=== PATIENT | female | born 1965 | race Caucasian/White ===

== ENCOUNTER 2023-02-20 10:30 | Outpatient (AMB) | payer BC, SELFPAY ==
--- OUTSIDE RECORDS SUMMARY | 2023-02-20 10:32 | XMS_ITS | Continuity of Care Document ---
Author Name Unknown Organization [facility] Hari lt Address [address] [place] [address]- Care Team Providers Care Plate Embosser Name Role Phone Kenrick ZAMARRIPA, Mariely Garcia Primary Care Physician Encounter [facility] [place] Date(s): 08/21/21 - 01/19/22 [facility] Adult [address] [place] [address]- Attending Physician: Kenrick ZAMARRIPA, Mariely Garcia Referring Physician: Lester Day MD Allergies, Adverse Reactions, Alerts No Known Allergies Immunizations Given and Recorded Vaccine Date Status Refusal Reason SARS-CoV-2 (COVID-19) mRNA BNT-162b2 vac 04/04/21 Recorded SARS-CoV-2 (COVID-19) mRNA BNT-162b2 vac 11/23/20 Recorded tetanus/diphtheria/pertussis, acel(Tdap) 1 11/06/20 Given 1Result Comment: [id number] Medications levothyroxine 0.137 mg oral tablet 1 tablet = 137 mcg, By Mouth, Daily, take 1 tab daily mon-mon take 1/2 tab on sundays, # 90 tablet,0 Refills, Maintenance, 12/29/21 10:17:00 EDT, [facility]/pharmacy #[id number], Partial fill upon patient request if the prescription is for a schedule II opioid d... Start Date: 12/29/21 Stop Date: 03/29/22 Status: Ordered Pen [place], 32 G x 4 mm BD Ultra Fine III See Instructions, # 100 each, Refills 1, Tot. Refills 1, Maintenance, use with saxenda, 12/29/21 10:42:00 EDT, Supply, 162, cm, 12/29/21 9:55:00 EDT, Height, 96.1, kg, 03/25/20 11:21:00 EST, Dry Weight Start Date: 12/29/21 Status: Ordered Saxenda 18 mg/3 mL subcutaneous solution See Instructions, week 1: 0.6mg SC daily x7 days week 2: 1.2 mg SC daily x 7 days week 3: 1.8 mg SCdaily x 7 days week 4: 2.4 mg SC daily x 7 days week 5 3mg SC daily, # 15 mL, 1 Refills, Maintenance, 12/29/21 10:39:00 EDT, [id number],... Start Date: 12/29/21 Status: Ordered Problem List Condition Effective Dates Status Health Status Inform ant Graves' disease(Confirmed) Active Status post radioactive iodi ne thyroid ablation(Confirmed) Active Hypothyroidism(Confirmed) Active Obese class II(Confirmed) Active Social History Social History Type Response Smoking Status Never (less than 100 in lifetime) entered on: 08/08/18 Sex Care Team Personnel Name: Kenrick ZAMARRIPA, Mariely Garcia Address: [address] [place] [address] Adult [place], [place] [address]
--- OUTSIDE RECORDS SUMMARY | 2023-02-20 10:32 | XMS_ITS | Continuity of Care Document ---
Author Name Unknown Organization [facility] Hari lt Address [address] [place] [address]- Care Team Providers Care Hydrographic Engineer Name Role Phone Kenrick ZAMARRIPA, Mariely Garcia Primary Care Physician Encounter [facility] [place] Date(s): 06/24/21 - 07/24/21 [facility] Adult [address] [place] [address]- Allergies, Adverse Reactions, Alerts No Known Allergies Immunizations Given and Recorded Vaccine Date Status Refusal Reason SARS-CoV-2 (COVID-19) mRNA BNT-162b2 vac 11/23/20 Recorded tetanus/diphtheria/pertussis, acel(Tdap) 1 11/06/20 Given 1Result Comment: [id number] Medications Levoxyl 0.125 mg oral tablet 1 tablet = 125 mcg, By Mouth, Daily, # 90 tablet, 3 Refills, Maintenance, 02/09/21 15:47:00 EDT, Tablet, [id number], Partial fill upon patient request if the prescription is for a schedule IIopioid drug., 162, cm, 02/09/21 15:17:00 EDT, [facility]... Start Date: 02/09/21 Status: Ordered Problem List Condition Effective Dates Status Health Status Inform ant Graves' disease(Confirmed) Active Status post radioactive iodi ne thyroid ablation(Confirmed) Active Hypothyroidism(Confirmed) Active Obesity(Confirmed) Active Social History Social History Type Response Smoking Status Never (less than 100 in lifetime) entered on: 08/08/18 Sex
--- OUTSIDE RECORDS SUMMARY | 2023-02-20 10:32 | XMS_ITS | Continuity of Care Document ---
Author Name Unknown Organization [facility] Hari lt Address [address] [place] [address]- Care Team Providers Care Animal Maintenance Supervisor Name Role Phone Not on Staff, PCP Primary Care Physician Unavail able Encounter [facility] Date(s): 01/04/23 - 02/03/23 [facility] Adult [address] [place] [address]- Attending Physician: Admtr, Ar8 Admitting Physician: Admtr, Ar8 Referring Physician: Admtr, Ar8 Allergies, Adverse Reactions, Alerts No Known Allergies Immunizations Given and Recorded Vaccine Date Status Refusal Reason SARS-CoV-2 (COVID-19) mRNA BNT-162b2 vac 04/04/21 Recorded SARS-CoV-2 (COVID-19) mRNA BNT-162b2 vac 11/23/20 Recorded tetanus/diphtheria/pertussis, acel(Tdap) 1 11/06/20 Given 1Result Comment: [id number] Medications levothyroxine 125 mcg (0.125 mg) oral tablet 1 tablet, By Mouth, Daily, # 90 tablet, 0 Refills, Maintenance, 10/05/22 6:54:00 EDT, [id number], labs needed for further refills, 162, cm, 04/01/22 13:47:00 EST, Height Start Date: 10/05/22 Status: Ordered Pen [place], 32 G x 4 mm BD Ultra [...] Date: 12/29/21 Status: Ordered Problem List Condition Confirmation Course Effective Dates Status H ealth Status Informant Graves' disease Confirmed Active Status post radioactive iodine thyroid ablation Confirmed Active Hypothyroidism Confirmed Active Obese class II Confirmed Active Social History Social History Type Response Smoking Status Never (less than 100 in lifetime) entered on: 08/08/18 Sex Patient Care team information Care Team Personnel Name: Not on Staff, PCP Position: [facility] Physician (General Medicine) Member Role: PCP Care Team Related Persons Name: ABELARDO GRIFFITH Address: home [address] [place] [address] Name: LINDA GRIFFITH Address: home [address] [place] [address] Name: JIMMY THORPE Name: TANIA THORPE Address: home [address] [place] [address]
--- OUTSIDE RECORDS SUMMARY | 2023-02-20 10:32 | XMS_ITS | Continuity of Care Document ---
Author Name Unknown Organization [facility] Hari lt Address [address] [place] [address]- Care Team Providers Care Single Pointed Operator Name Role Phone Edwin Toledo MD Primary Care Physician [phone] Encounter [facility] [place] Date(s): 02/09/21 - 03/11/21 [facility] Adult [address] [place] [address]- Attending Physician: Admtr, Ar8 Admitting Physician: Admtr, Ar8 Referring Physician: Admtr, Ar8 Allergies, Adverse Reactions, Alerts Substance Reaction Severity Status NKA Active Immunizations Given and Recorded Vaccine Date Status Refusal Reason SARS-CoV-2 (COVID-19) mRNA BNT-162b2 vac 11/23/20 Recorded tetanus/diphtheria/pertussis, acel(Tdap) 1 11/06/20 Given 1Result Comment: [id number] Medications Levoxyl 0.125 mg oral tablet 1 tablet = 125 mcg, By Mouth, Daily, # 90 tablet, 3 Refills, Maintenance, 02/09/21 15:47:00 EDT, Tablet, [facility]/pharmacy #[id number], Partial fill upon patient request if the prescription is for a schedule IIopioid drug., 162, cm, 02/09/21 15:17:00 EDT, [facility]... Start Date: 02/09/21 Status: Ordered Problem List Condition Effective Dates Status Health Status Inform ant Graves' disease(Confirmed) Active Status post radioactive iodi ne thyroid ablation(Confirmed) Active Hypothyroidism(Confirmed) Active Obesity(Confirmed) Active Social History Social History Type Response Smoking Status Never (less than 100 in lifetime) entered on: 08/08/18 Sex
--- OUTSIDE RECORDS SUMMARY | 2023-02-20 10:32 | XMS_ITS | Continuity of Care Document ---
Author Name Unknown Organization [facility] Hari Address [address] [place] [address]- Care Team Providers Care Racing Manager Name Role Phone Edwin Toledo MD Primary Care Physician [phone] Encounter [facility] [place] Date(s): 11/06/20 - 12/06/20 [facility] Adult [address] [place] [address]- Attending Physician: Admtr, Yaneth Admitting Physician: Admtr, Ar8 Referring Physician: Admtr, Ar8 Allergies, Adverse Reactions, Alerts Substance Reaction Severity Status NKA Active Immunizations Given and Recorded Vaccine Date Status Refusal Reason tetanus/diphtheria/pertussis, acel(Tdap) 1 11/06/20 Given 1Result Comment: [id number] Medications Levoxyl 0.137 mg oral tablet 1 tablet = 137 mcg, By Mouth, Daily, # 90 tablet, 3 Refills, Maintenance, 11/06/20 11:03:00 EDT, Tablet, [facility]/pharmacy #[id number], Partial fill upon patient request if the prescription is for a schedule IIopioid drug., 162, cm, 11/06/20 10:24:00 EDT, [facility]... Start Date: 11/06/20 Status: Ordered Problem List Condition Effective Dates Status Health Status Inform ant Graves' disease(Confirmed) Active Status post radioactive iodi ne thyroid ablation(Confirmed) Active Hypothyroidism(Confirmed) Active Obesity(Confirmed) Active Social History Social History Type Response Smoking Status Never (less than 100 in lifetime) entered on: 08/08/18 Sex
--- OUTSIDE RECORDS SUMMARY | 2023-02-20 10:32 | XMS_ITS | Continuity of Care Document ---
Author Name Unknown Organization [facility] [place] Hari lt Address [address] [place] [address]- Care Team Providers Care Senior Director Of [employer] Name Role Phone Kenrick ZAMARRIPA, Mariely Garcia Primary Care Physician [phone] Encounter [facility] [place] Date(s): 12/29/21 - 01/05/22 [facility] [place] Adult [address] [place] [address]- Encounter Diagnosis Annual physical exam(Discharge Diagnosis) - 12/29/21 Hypothyroidism(Discharge Diagnosis) - 12/29/21 Obese class II(Discharge Diagnosis) - 12/29/21 Attending Physician: Kenrick ZAMARRIPA, Mariely Garcia Referring Physician: Lester Day MD Allergies, Adverse Reactions, Alerts No Known Allergies Immunizations Given and Recorded Vaccine Date Status Refusal Reason SARS-CoV-2 (COVID-19) mRNA BNT-162b2 vac 04/04/21 Recorded SARS-CoV-2 (COVID-19) mRNA BNT-162b2 vac 11/23/20 Recorded tetanus/diphtheria/pertussis, acel(Tdap) 1 11/06/20 Given 1Result Comment: [id number] Medications levothyroxine 0.137 mg oral tablet 1 tablet = 137 mcg, By Mouth, Daily, take 1 tab daily mon-mon take 1/2 tab on sundays, # 90 tablet,0 Refills, Maintenance, 12/29/21 10:17:00 EDT, [facility]/pharmacy #[id number], Partial fill upon patient request if the prescription is for a schedule II opioid d... Start Date: 12/29/21 Stop Date: 03/29/22 Status: Ordered Pen [place], 32 G x 4 mm BD Ultra [...] Active Hypothyroidism(Confirmed) Active Obese class II(Confirmed) Active Diagnosis Diagnosis Type Effective Dates Health Status Clinical Service Informant Annual physical exam Discharge Diagnosis 12/29/21 Hypothyroidism Discharge Diagnosis 12/29/21 Obese class II Discharge Diagnosis 12/29/21 Vital Signs Most recent to oldest [Reference Range]: 1 Height 162.0 cm (12/29/21 9:55 AM) Weight 98.6 kg (12/29/21 9:55 AM) Oxygen Saturation [94-100 %] 97 % (12/29/21 9:55 AM) Pulse Rate [55-90 bpm] 56 bpm (12/29/21 9:55 AM) Body Mass Index [18.5-24.99] 37.57 *>HHI* (12/29/21 9:55 AM) Blood Pressure [90-138/55-84 mm Hg] 102/ 68mm Hg (12/29/21 9:55 AM) Temperature [96.8-100.4 DegF] 97.6 DegF (12/29/21 9:55 AM) Blood pressure sites Arm, right (12/29/21 9:55 AM) Temperature Route Temporal (12/29/21 9:55 AM) Weight Obtained Via Standing scale (12/29/21 9:55 AM) Social History Social History Type Response Smoking Status Never (less than 100 in lifetime) entered on: 08/08/18 Sex
--- OUTSIDE RECORDS SUMMARY | 2023-02-20 10:32 | XMS_ITS | Continuity of Care Document ---
Author Name Unknown Organization [facility] Hari lt Address [address] [place] [address]- Care Team Providers Care Hammer Heater Name Role Phone Edwin oTledo MD Primary Care Physician Encounter [facility] [place] Date(s): 02/09/21 - 02/16/21 [facility] Adult [address] [place] [address]- Encounter Diagnosis Hypothyroidism(Discharge Diagnosis) - 02/09/21 Obesity(Discharge Diagnosis) - 02/09/21 Attending Physician: Edwin Toledo MD Allergies, Adverse Reactions, Alerts Substance Reaction Severity Status NKA Active Immunizations Given and Recorded Vaccine Date Status Refusal Reason SARS-CoV-2 (COVID-19) mRNA BNT-162b2 vac 11/23/20 Recorded tetanus/diphtheria/pertussis, acel(Tdap) 1 11/06/20 Given 1Result Comment: [id number] Medications Levoxyl 0.125 mg oral tablet 1 tablet = 125 mcg, By Mouth, Daily, # 90 tablet, 3 Refills, Maintenance, 02/09/21 15:47:00 EDT, Tablet, [facility]/pharmacy #[id number], Partial fill upon patient request if the prescription is for a schedule IIopioid drug., 162, cm, 02/09/21 15:17:00 EDT, Cooper... Start Date: 02/09/21 Status: Ordered Problem List Condition Effective Dates Status Health Status Inform ant Graves' disease(Confirmed) Active Status post radioactive iodi ne thyroid ablation(Confirmed) Active Hypothyroidism(Confirmed) Active Obesity(Confirmed) Active Diagnosis Diagnosis Type Effective Dates Health Status Cl inical Service Informant Hypothyroidism Discharge Diagnosis 02/09/21 Obesity Discharge Diagnosis 02/09/21 Vital Signs Most recent to oldest [Reference Range]: 1 Height 162.0 cm (02/09/21 3:17 PM) Weight 95.5 kg (02/09/21 3:17 PM) Body Mass Index [18.5-24.99] 36.39 *>HHI* (02/09/21 3:17 PM) Weight Obtained Via Standing scale (02/09/21 3:17 PM) Social History Social History Type Response Smoking Status Never (less than 100 in lifetime) entered on: 08/08/18 Sex
--- OUTSIDE RECORDS SUMMARY | 2023-02-20 10:32 | XMS_ITS | Continuity of Care Document ---
Author Name Unknown Organization [facility] Hari Address [address] [place] [address]- Care Team Providers Care Ophthalmic Technician Name Role Phone Kenrick ZAMARRIPA, Mariely Garcia Primary Care Physician [place] [facility] [place] 05/04/22 [facility] Adult [address] [place] [address]- Allergies, Adverse Reactions, Alerts No Known Allergies Immunizations Given and Recorded Vaccine Date Status Refusal Reason SARS-CoV-2 (COVID-19) mRNA BNT-162b2 vac 04/04/21 Recorded SARS-CoV-2 (COVID-19) mRNA BNT-162b2 vac 11/23/20 Recorded tetanus/diphtheria/pertussis, acel(Tdap) 1 11/06/20 Given 1Result Comment: [id number] Medications levothyroxine 125 mcg (0.125 mg) oral tablet 1 tablet, By Mouth, Daily, # 90 tablet, 0 Refills, Maintenance, 04/01/22 11:52:00 EST, [id number], labs needed for further refills, 162, cm, 12/29/21 9:55:00 EDT, Height Start Date: 04/01/22 Status: Ordered Pen [place], 32 G x 4 mm BD Ultra [...] Care team information Care Team Personnel Name: Kenrick ZAMARRIPA, Mariely Garcia Position: [facility] Associate Professional Member Role: PCP Address: Address: [address] [place] [address]- Care Team Related Persons Name: ABELARDO GRIFFITH Address: home [address] [place] [address] Name: LINDA GRIFFITH Address: home [address] [place] [address] Name: JIMMY THORPE Name: TANIA THORPE Address: home [address] [place] [address]
--- OUTSIDE RECORDS SUMMARY | 2023-02-20 10:32 | XMS_ITS | Continuity of Care Document ---
Author Name Unknown Organization [facility] Hari lt Address [address] [place] [address]- Care Team Providers Care Clay Maker Name Role Phone Kenrick ZAMARRIPA, Mariely Garcia Primary Care Physician [place] [facility] [place]22 - 04/08/22 [facility] Adult [address] [place] [address]- Encounter Diagnosis Hypothyroidism(Discharge Diagnosis) - 04/01/22 Foot pain, right(Discharge Diagnosis) - 04/01/22 Attending Physician: Mariely Choudhary NP Allergies, Adverse Reactions, Alerts No Known Allergies Immunizations Given and Recorded Vaccine Date Status Refusal Reason SARS-CoV-2 (COVID-19) mRNA BNT-162b2 vac 04/04/21 Recorded SARS-CoV-2 (COVID-19) mRNA BNT-162b2 vac 11/23/20 Recorded tetanus/diphtheria/pertussis, acel(Tdap) 1 11/06/20 Given 1Result Comment: [id number] Medications levothyroxine 125 mcg (0.125 mg) oral tablet 1 tablet, By Mouth, Daily, # 90 tablet, 0 Refills, Maintenance, 04/01/22 11:52:00 EST, [id number], labs needed for further refills, 162, cm, 12/29/21 9:55:00 EDT, Height Start Date: 04/01/22 Status: Ordered Pen [place], 32 G x 4 mm BD Ultra [...] mL, 1 Refills, Maintenance, 12/29/21 10:39:00 EDT, [facility]/pharmacy #[id number],... Start Date: 12/29/21 Status: Ordered Problem List Condition Confirmation Course Effective Dates Status H ealth Status Informant Graves' disease Confirmed Active Status post radioactive iodine thyroid ablation Confirmed Active Hypothyroidism Confirmed Active Obese class II Confirmed Active Diagnosis Diagnosis Type Effective Dates Health Status Clinical Service Informant Hypothyroidism Discharge Diagnosis 04/01/22 Foot pain, right Discharge Diagnosis 04/01/22 Vital Signs Most recent to oldest [Reference Range]: 1 Height 162.0 cm (04/01/22 1:47 PM) Oxygen Saturation [94-100 %] 100 % (04/01/22 1:47 PM) Pulse Rate [55-90 bpm] 61 bpm (04/01/22 1:47 PM) Blood Pressure [90-138/55-84 mm Hg] 109/ 77mm Hg (04/01/22 1:47 PM) Blood pressure sites Arm, left (04/01/22 1:47 PM) Social History Social History Type Response Smoking Status Never (less than 100 in lifetime) entered on: 08/08/18 Sex Patient Care team information Care Team Personnel Name: Kenrick ZAMARRIPA, Mariely Garcia Position: [facility] Associate Professional Member Role: PCP Address: Address: [address] [place] [address]- Care Team Related Persons Name: ABELARDO GRIFFITH Address: home [address] [place] [address] Name: LINDA GRIFFITH Address: home [address] [place] [address] Name: JIMMY THORPE Name: TANIA THORPE Address: home [address] [place] [address]
--- OUTSIDE RECORDS SUMMARY | 2023-02-20 10:32 | XMS_ITS | Continuity of Care Document ---
Author Name Unknown Organization [facility] Hari lt Address [address] [place] [address]- Care Team Providers Care Benefits Assistant Name Role Phone Kenrick ZAMARRIPA, Mariely Garcia Primary Care Physician [phone] [place] [facility] [place] 03[place]22 - 04/30/22 [facility] Adult [address] [place] [address]- Allergies, Adverse Reactions, Alerts No Known Allergies Immunizations Given and Recorded Vaccine Date Status Refusal Reason SARS-CoV-2 (COVID-19) mRNA BNT-162b2 vac 04/04/21 Recorded SARS-CoV-2 (COVID-19) mRNA BNT-162b2 vac 11/23/20 Recorded tetanus/diphtheria/pertussis, acel(Tdap) 1 11/06/20 Given 1Result Comment: [id number] Medications levothyroxine 125 mcg (0.125 mg) oral tablet 1 tablet, By Mouth, Daily, # 90 tablet, 0 Refills, Maintenance, 04/01/22 11:52:00 EST, [id number], labs needed for further refills, 162, cm, 12/29/21 9:55:00 EDT, Height Start Date: 04/01/22 Status: Ordered Pen [place], 32 G x 4 mm BD Ultra [...] Personnel Name: Kenrick ZAMARRIPA, Mariely Garcia Position: [facility] Associate Professional Member Role: PCP Address: Address: [address] [place] [address]- Care Team Related Persons Name: ABELARDO GRIFFITH Address: [address] [place] [address] Name: LINDA GRIFFITH Address: home [address] [place] [address] Name: JIMMY THORPE Name: TANIA THORPE Address: home [address] [place] [address]
--- OUTSIDE RECORDS SUMMARY | 2023-02-20 10:32 | XMS_ITS | Continuity of Care Document ---
Author Name Unknown Organization [facility] Hari lt Address [address] [place] [address]- Care Team Providers Care Chicken Stuffer Name Role Phone Kenrick ZAMARRIPA, Mariely Garcia Primary Care Physician [phone] [place] [facility] [place] 08/23/21 - 09/22/21 [facility] Adult [address] [place] [address]- Allergies, Adverse Reactions, Alerts No Known Allergies Immunizations Given and Recorded Vaccine Date Status Refusal Reason SARS-CoV-2 (COVID-19) mRNA BNT-162b2 vac 11/23/20 Recorded tetanus/diphtheria/pertussis, acel(Tdap) 1 11/06/20 Given 1Result Comment: [id number] Medications Levoxyl 0.125 mg oral tablet 1 tablet = 125 mcg, By Mouth, Daily, # 90 tablet, 3 Refills, Maintenance, 02/09/21 15:47:00 EDT, Tablet, [facility]/pharmacy #[id number], Partial fill upon patient request if the [...]
--- OUTSIDE RECORDS SUMMARY | 2023-02-20 10:32 | XMS_ITS | Continuity of Care Document ---
Author Name Unknown Organization [facility] Hari lt Address [address] [place] [address]- Care Team Providers Care Setter Off Name Role Phone Kenrick ZAMARRIPA, Mariely Garcia Primary Care Physician [phone] Encounter [facility] [place] Date(s): 04/01/22 - 05/01/22 [facility] Adult [address] [place] [address]- Attending Physician: Admtr, Ar8 Admitting Physician: Admtr, Ar8 Referring Physician: Admtr, Ar8 Allergies, Adverse Reactions, Alerts No Known Allergies Immunizations Given and Recorded Vaccine Date Status Refusal Reason SARS-CoV-2 (COVID-19) mRNA BNT-162b2 vac 04/04/21 Recorded SARS-CoV-2 (COVID-19) mRNA BNT-162b2 vac 11/23/20 Recorded tetanus/diphtheria/pertussis, acel(Tdap) 1 11/06/20 Given 1Result Comment: [id number] Medications levothyroxine 125 mcg (0.125 mg) oral tablet 1 tablet, By Mouth, Daily, # 90 tablet, 0 Refills, Maintenance, 04/01/22 11:52:00 EST, [id number], labs needed for further refills, 162, cm, 12/29/21 9:55:00 EDT, Height Start Date: 04/01/22 Status: Ordered Pen [place], 32 G x 4 mm BD Ultra [...] mL, 1 Refills, Maintenance, 12/29/21 10:39:00 EDT, [facility]/pharmacy #[id number],... Start Date: 12/29/21 Status: Ordered Problem [...] Personnel Name: Kenrick ZAMARRIPA, Mariely Garcia Position: [facility] Associate Professional Member Role: PCP Address: Address: [address] [place] [address]- Care Team Related Persons Name: ABELARDO GRIFFITH Address: [address] [place] [address] Name: LINDA GRIFFITH Address: [address] [place] [address] Name: JIMMY THORPE Name: TANIA THORPE Address: home [address] [place] [address]
--- OUTSIDE RECORDS SUMMARY | 2023-02-20 10:32 | XMS_ITS | Continuity of Care Document ---
Author Name Unknown Organization [facility] Hari lt Address [address] [place] [address]- Care Team Providers Care Orthotist Prosthetist Name Role Phone Edwin Toledo MD Primary Care Physician [phone] Encounter [facility] Date(s): 11/06/20 - 11/13/20 [facility] Adult [address] [place] [address]- Encounter Diagnosis General medical exam(Discharge Diagnosis) - 11/06/20 Fatigue(Discharge Diagnosis) - 11/06/20 Caregiver stress(Discharge Diagnosis) - 11/06/20 Poor sleep pattern(Discharge Diagnosis) - 11/06/20 Obesity(Discharge Diagnosis) - 11/06/20 Attending Physician: Edwin Toledo MD Allergies, Adverse Reactions, Alerts Substance Reaction Severity Status NKA Active Immunizations Given and Recorded Vaccine Date Status Refusal Reason tetanus/diphtheria/pertussis, acel(Tdap) 1 11/06/20 Given 1Result Comment: [id number] Medications Levoxyl 0.137 mg oral tablet 1 tablet = 137 mcg, By Mouth, Daily, # 90 tablet, 3 Refills, Maintenance, 11/06/20 11:03:00 EDT, [place], [id number], Partial fill upon patient request if the prescription is for a schedule IIopioid drug., 162, cm, 11/06/20 10:24:00 EDT, [place]... Start Date: 11/06/20 Status: Ordered Problem List Condition Effective Dates Status Health Status Inform ant Graves' disease(Confirmed) Active Status post radioactive iodi ne thyroid ablation(Confirmed) Active Hypothyroidism(Confirmed) Active Obesity(Confirmed) Active Diagnosis Diagnosis Type Effective Dates Health Status Cl inical Service Informant Obesity Discharge Diagnosis 11/06/20 Caregiver stress Discharge Diagnosis 11/06/20 Poor sleep pattern Discharge Diagnosis 11/06/20 Fatigue Discharge Diagnosis 11/06/20 General medical exam Discharge Diagnosis 11/06/20 Procedures Procedure Date Related Diagnosis Body Site Status Tubal ligation Completed Vital Signs Most recent to oldest [Reference Range]: 1 Height 162.0 cm (11/06/20 10:24 AM) Weight 92.9 kg (11/06/20 10:24 AM) Oxygen Saturation [94-100 %] 97 % (11/06/20 10:24 AM) Pulse Rate [55-90 bpm] 54 bpm *L* (11/06/20 10:24 AM) Body Mass Index [18.5-24.99] 35.4 *>HHI* (11/06/20 10:24 AM) Blood Pressure [90-138/55-84 mm Hg] 96/6 4mm Hg (11/06/20 10:24 AM) Temperature [96.8-100.4 DegF] 97.5 DegF (11/06/20 10:24 AM) Mode of Delivery (Oxygen) Room air (11/06/20 10:24 AM) Blood pressure sites Arm, left (11/06/20 10:24 AM) Temperature Route Oral (11/06/20 10:24 AM) Weight Obtained Via Standing scale (11/06/20 10:24 AM) Social History Social History Type Response Smoking Status Never (less than 100 in lifetime) entered on: 08/08/18 Sex
--- OUTSIDE RECORDS SUMMARY | 2023-02-20 10:32 | XMS_ITS | Continuity of Care Document ---
Author Name Unknown Organization [facility] Hari lt Address [address] [place] [address]- Care Team Providers Care Recreational Resort Manager Name Role Phone Not on Staff, PCP Primary Care Physician Unavail able Encounter [facility] Date(s): 10/03/22 - 11/02/22 [facility] Adult [address] [place] [address]- Allergies, Adverse Reactions, Alerts No Known Allergies Immunizations Given and Recorded Vaccine Date Status Refusal Reason SARS-CoV-2 (COVID-19) mRNA BNT-162b2 vac 04/04/21 Recorded SARS-CoV-2 (COVID-19) mRNA BNT-162b2 vac 11/23/20 Recorded tetanus/diphtheria/pertussis, acel(Tdap) 1 11/06/20 Given 1Result Comment: [id number] Medications levothyroxine 125 mcg (0.125 mg) oral tablet 1 tablet, By Mouth, Daily, # 90 tablet, 0 Refills, Maintenance, 10/05/22 6:54:00 EDT, [id number], labs needed for further refills, 162, cm, 04/01/22 13:47:00 EST, Height Start Date: 10/05/22 Status: Ordered Pen [place], 32 G x 4 mm BD Ultra [...] Personnel Name: Not on Staff, PCP Position: S Physician (General Medicine) Member Role: PCP Care Team Related Persons Name: ABELARDO GRIFFITH Address: home [address] [place] [address] Name: LINDA GRIFFITH Address: home [address] [place] [address] Name: JIMMY THORPE Name: TANIA THORPE Address: home [address] [place] [address]
--- OUTSIDE RECORDS SUMMARY | 2023-02-20 10:32 | XMS_ITS | Continuity of Care Document ---
Author Name Unknown Organization [facility] Address [address] [facility] [place] [address]- Care Team Providers Care Salesperson New Cars Name Role Phone Tre MELGOZA, Edwin Fitzgerald Primary Care Physician Encounter 11/25/20 - 01/27/21 [facility] [address], [facility] [place] [address] [place] [address]- Attending Physician: Vanessa Mchugh NP Admitting Physician: Vanessa Mchugh NP Referring Physician: Vanessa Mchugh NP Allergies, Adverse Reactions, Alerts Substance Reaction Severity Status NKA Active Immunizations Given and Recorded Vaccine Date Status Refusal Reason tetanus/diphtheria/pertussis, acel(Tdap) 1 11/06/20 Given 1Result Comment: [id number] Medications Levoxyl 0.137 mg oral tablet 1 tablet = 137 mcg, By Mouth, Daily, # 90 tablet, 3 Refills, Maintenance, 11/06/20 11:03:00 EDT, Tablet, [facility] #[id number], Partial fill upon patient request if the [...]
--- OUTSIDE RECORDS SUMMARY | 2023-02-20 10:32 | XMS_ITS | Continuity of Care Document ---
Author Name Unknown Organization [facility] Hari lt Address [address] [place] [address]- Care Team Providers Care Plug Drill Operator Name Role Phone Kenrick ZAMARRIPA, Mariely Garcia Primary Care Physician En[place] [facility] Date(s): 03/31/22 - 04/30/22 [facility] Adult [address] [place] [address]- Allergies, Adverse Reactions, Alerts No Known Allergies Immunizations Given and Recorded Vaccine Date Status Refusal Reason SARS-CoV-2 (COVID-19) mRNA BNT-162b2 vac 04/04/21 Recorded SARS-CoV-2 (COVID-19) mRNA BNT-162b2 vac 11/23/20 Recorded tetanus/diphtheria/pertussis, acel(Tdap) 1 11/06/20 Given 1Result Comment: [id number] Medications levothyroxine 125 mcg (0.125 mg) oral tablet 1 tablet, By Mouth, Daily, # 90 tablet, 0 Refills, Maintenance, 04/01/22 11:52:00 EST, [id number], labs needed for further refills, 162, cm, 12/29/21 9:55:00 EDT, Height Start Date: 04/01/22 Status: Ordered Pen [place], 32 G x 4 mm BD Ultra [...] Personnel Name: Kenrick ZAMARRIPA, Mariely Garcia Position: [facility] Associate Professional Member Role: PCP Address: Address: [address] [place] [address]- Care Team Related Persons Name: ABELARDO GRIFFITH Address: [address] [place] [address] Name: LINDA GRIFFITH Address: home [address] [place] [address] Name: JIMMY THORPE Name: TANIA THORPE Address: home [address] [place] [address]
--- OUTSIDE RECORDS SUMMARY | 2023-02-20 10:33 | XMS_ITS | Continuity of Care Document ---
Author Name Unknown Organization [facility] Address [address] [place] [address]- Care Team Providers Care Floor Attendant Name Role Phone Char MELGOZA, Matt Escalante Primary Care Physician Encounter [facility] Date(s): 03/25/20 - 03/25/[address] [address]- [facility] Discharge Disposition: A-D/C Home Attending Physician: Mariely More MD Admitting Physician: Mariely More MD Referring Physician: Not on Staff, Referring MD Allergies, Adverse Reactions, Alerts Substance Reaction Severity Status NKA Active Medications Flovent Diskus 100 mcg/inh inhalation powder 1 puffs, Inhalation, 2 times a day, # 60 each, 0 Refills, Maintenance, 08/08/18 17:09:46 EDT, Powder Start Date: 08/08/18 Status: Ordered Levoxyl 0.125 mg oral tablet 1 tablet = 125 mcg, By Mouth, Daily, # 30 tablet, 0 Refills, Maintenance, 08/08/18 16:48:29 EDT, Tablet Start Date: 08/08/18 Status: Ordered ProAir HFA 90 mcg/inh inhalation aerosol with adapter 1, puffs, Inhalation, Every 4 hours, PRN, # 8.5 Gm, Refills 0, Tot. Refills 0, Maintenance, 08/08/18 17:09:35 EDT, Aerosol, Print Requisition Start Date: 08/08/18 Status: Ordered Robaxin-750 750 mg oral tablet 2 tablet = 1,500 mg, By Mouth, 3 times a day, PRN Pain , Moderate, for 7 days, Take 1500 mg 3 timesdaily PRN for 2 days, then 750mg 3 times daily PRN, # 30 tablet, 0 Refills, Acute 04/01/20 12:12:00EST, 03/25/20 12:12:00 EST, [facility]t, [id number] Start Date: 03/25/20 Stop Date: 04/01/20 Status: Ordered Vital Signs Most recent to oldest [Reference Range]: 1 Height 165 cm (03/25/20 11:21 AM) Weight 96.1 kg (03/25/20 11:21 AM) Oxygen Saturation [94-100 %] 99 % (03/25/20 11:21 AM) Pulse Rate [55-90 bpm] 57 bpm (03/25/20 11:21 AM) Blood Pressure [90-138/55-84 mm Hg] 107/ 65mm Hg (03/25/20 11:21 AM) Respiratory Rate [16-30 br/min] 14 br/mi n *L* (03/25/20 11:21 AM) Temperature [96.8-100.4 DegF] 97.8 DegF (03/25/20 11:21 AM) Mode of Delivery (Oxygen) Room air (03/25/20 11:21 AM) Temperature Route Oral (03/25/20 11:21 AM) Dry Weight 96.1 kg (03/25/20 11:21 AM) Weight Obtained Via Standing scale (03/25/20 11:21 AM) Dry Weight Obtained Via Standing scale (03/25/20 11:21 AM) Social History Social History Type Response Smoking Status Never (less than 100 in lifetime) entered on: 08/08/18 Sex
--- OUTSIDE RECORDS SUMMARY | 2023-02-20 10:33 | XMS_ITS | Continuity of Care Document ---
Author Name Unknown Organization [facility] Hari lt Address [address] [place] [address]- Care Team Providers Care Hand Sole Sewer Name Role Phone Edwin Toledo MD Primary Care Physician [phone] Encounter [facility] Date(s): 10/28/20 - 11/27/20 [facility] Adult [address] [place] [address]- Allergies, Adverse Reactions, Alerts Substance Reaction Severity Status NKA Active Immunizations Given and Recorded Vaccine Date Status Refusal Reason tetanus/diphtheria/pertussis, acel(Tdap) 1 11/06/20 Given 1Result Comment: [id number] Medications Levoxyl 0.137 mg oral tablet 1 tablet = 137 mcg, By Mouth, Daily, # 90 tablet, 3 Refills, Maintenance, 11/06/20 11:03:00 EDT, Tablet, [facility] #[id number], Partial fill upon patient request if the prescription is for a schedule IIopioid drug., 162, cm, 11/06/20 10:24:00 EDTCooper.[place]. Start Date: 11/06/20 Status: Ordered Problem List Condition Effective Dates Status Health Status Inform ant Graves' disease(Confirmed) Active Status post radioactive iodi ne thyroid ablation(Confirmed) Active Hypothyroidism(Confirmed) Active Obesity(Confirmed) Active Social History Social History Type Response Smoking Status Never (less than 100 in lifetime) entered on: 08/08/18 Sex
--- OUTSIDE RECORDS SUMMARY | 2023-02-20 10:33 | XMS_ITS | Continuity of Care Document ---
Author Name Unknown Organization [facility] Hari lt Address [address] [place] [address]- Care Team Providers Care Manager Business Intelligence Name Role Phone Kenrick ZAMARRIPA, Mariely Garcia Primary Care Physician Encounter [facility] Date(s): 03/22/22 - 04/21/22 [facility] Adult [address] [place] [address]- Allergies, Adverse Reactions, Alerts No Known Allergies Immunizations Given and Recorded Vaccine Date Status Refusal Reason SARS-CoV-2 (COVID-19) mRNA BNT-162b2 vac 04/04/21 Recorded SARS-CoV-2 (COVID-19) mRNA BNT-162b2 vac 11/23/20 Recorded tetanus/diphtheria/pertussis, acel(Tdap) 1 11/06/20 Given 1Result Comment: [id number] Medications levothyroxine 125 mcg (0.125 mg) oral tablet 1 tablet, By Mouth, Daily, # 90 tablet, 0 Refills, Maintenance, 04/01/22 11:52:00 EST, [id number], labs needed for further refills, 162, cm, 12/29/21 9:55:00 EDT, Height Start Date: 04/01/22 Status: Ordered Pen [place], 32 G x 4 mm BD Ultra [...] Personnel Name: Kenrick ZAMARRIPA, Mariely Garcia Position: [facility] PCO Associate Professional Member Role: PCP Address: Address: [address] [place] [address]- Care Team Related Persons Name: ABELARDO GRIFFITH Address: home [address] [place] [address] Name: LINDA GRIFFITH Address: home [address] [place] [address] Name: JIMMY THORPE Name: TANIA THORPE Address: home [address] [place] [address]
--- OUTSIDE RECORDS SUMMARY | 2023-02-20 10:33 | XMS_ITS | Continuity of Care Document ---
Author Name Unknown Organization [facility] Hari lt Address [address] [place] [address]- Care Team Providers Care Roller Inspector And Mender Name Role Phone Tre MELGOZA, Edwin Fitzgerald Primary Care Physician Encounter [facility] Date(s): 05/24/21 - 06/23/21 [facility] Adult [address] [place] [address]- Allergies, Adverse Reactions, Alerts No Known Allergies Immunizations Given and Recorded Vaccine Date Status Refusal Reason SARS-CoV-2 (COVID-19) mRNA BNT-162b2 vac 11/23/20 Recorded tetanus/diphtheria/pertussis, acel(Tdap) 1 11/06/20 Given 1Result Comment: [id number] Medications Levoxyl 0.125 mg oral tablet 1 tablet = 125 mcg, By Mouth, Daily, # 90 tablet, 3 Refills, Maintenance, 02/09/21 15:47:00 EDT, Tablet, [facility]/pharmacy #[id number], Partial fill upon patient request if the [...]
--- OUTSIDE RECORDS SUMMARY | 2023-02-20 10:33 | XMS_ITS | Continuity of Care Document ---
Author Name Unknown Organization [facility] Hari lt Address [address] [place] [address]- Care Team Providers Care Flight Service Specialist Name Role Phone Not on Staff, PCP Primary Care Physician Unavail able Encounter [facility] Date(s): 10/06/22 - 11/05/22 [facility] Adult [address] [place] [address]- Allergies, Adverse Reactions, Alerts No Known Allergies Immunizations Given and Recorded Vaccine Date Status Refusal Reason SARS-CoV-2 (COVID-19) mRNA BNT-162b2 vac 04/04/21 Recorded SARS-CoV-2 (COVID-19) mRNA BNT-162b2 vac 11/23/20 Recorded tetanus/diphtheria/pertussis, acel(Tdap) 1 11/06/20 Given 1Result Comment: [id number] Medications levothyroxine 125 mcg (0.125 mg) oral tablet 1 tablet, By Mouth, Daily, # 90 tablet, 0 Refills, Maintenance, 10/05/22 6:54:00 EDT, [id number], labs needed for further refills, 162, cm, 04/01/22 13:47:00 EST, Height Start Date: 10/05/22 Status: Ordered Pen [place], 32 G x 4 mm BD Ultra [...] Persons Name: ABELARDO GRIFFITH Address: [address] [place] [address] Name: LINDA GRIFFITH Address: home [address] [place] [address] Name: JIMMY THORPE Name: TANIA THORPE Address: home [address] [place] [address]
[2023-02-20 11:05] VITALS: BP 122/70; PULSE 58; TEMP 36.6; O2SAT 98; BMI 35.6
--- NOTE | 2023-02-20 11:05 | AM.OFFWIN_ITS ---
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 daily, patient reports she recently missed her appointment with a new PCP and was unable to fill her prescription has been on this dose for a while last dose this morning she still has 20 pills left however she is scheduled to see her PCP on March 31. No medical complaints today Physical exam benign Plan medication refill Filled levothyroxine 125 micro g p.o. daily times 30 days. Explained her she should be following up with her PCP. Educated patient on diagnosis and treatment plan, answered all question, patient verbalizes understanding. At this time patient will be discharged home, advised to return with new or worsening symptoms. Educated on worrisome signs and symptoms and when to return. At this time I feel comfortable discharge home. [facility] Social History Patient Tobacco Use Status: Never used Tobacco Review of Systems Const Details: Constitutional : No Weight loss, No Fever, No Chills, No Fatigue, No Malaise ENT/Mouth : No sore throat, No Rhinorrhea Eyes: No Eye Pain, No Swelling, No Redness Cardiovascular : No Chest Pain, No SOB, No Dyspnea on Exertion, No Orthopnea, No Edema, No Palpitations Respiratory : No Cough, No Sputum, No Wheezing Gastrointestinal : No Nausea, No Vomiting, No Diarrhea, No Constipation, No abdominal Pain, No Hematochezia, No Melena Genitourinary : No Dysuria, No Urinary Frequency, No Hematuria, Musculoskeletal : No joint pain, No Myalgias, No Joint Swelling Skin : No Skin Lesions, No rash Neuro : No Weakness, No Numbness, No Dizziness, No Headache Psych : No Anxiety/Panic, No Depression All other systems reviewed and are negative All systems reviewed & are unremarkable except as noted in HPI and below Physical Exam Vital Signs: Last Vital Signs Temp 97.9 F 02/20/23 11:05 Pulse 58 02/20/23 11:05 BP 122/70 02/20/23 11:05 Pulse Ox 98 02/20/23 11:05 BMI result Body Mass Index 35.6 vss Appearance: Alert.? Oriented X3.? No acute distress.? Head: Normocephalic, atraumatic, no step-offs or deformities Eyes: Pupils equal, round and reactive to light.? CVS: Normal heart rate and rhythm.? Pulses normal.? Respiratory: No respiratory distress.? Breath sounds normal.? Abdomen: Soft and nontender.? Skin: Skin warm and dry.? Normal skin color.? Normal skin turgor.? Extremities: No lower extremity edema.? No calf ttp. 5/5 strength to bilateral upper and lower extremities Neuro: Oriented X 3.? No motor deficit.? No sensory deficit. CN 2-12 intact Assessment & Plan Assessment & Plan (1) Medication refill: Code(s): Z76.0 - Encounter for issue of repeat prescription Plan Take your medications as prescribed. If you were prescribed antibiotics today, it is important that you take your medication to their entirety, do not skip any doses, do not finish them early. Follow-up with your primary care provider this week. Return to the emergency department with new or worsening symptoms. Such as fevers, chills, chest pain, shortness of breath, nausea, vomiting, dizziness, headache, vision changes, lethargy In case of emergency call 911 Medications: New levothyroxine 125 mcg PO DAILY 30 caps 0RF Coding Level of Care Code Est Pt Level 3 (68536) Diagnoses Medication refill Z76.0
== END 2023-02-20 11:41 | disposition home or self-care (01) ==
PROVIDERS: Visit Provider Physician Assistant
DX: Z76.0 Encounter for issue of repeat prescription (principal)
CPT/HCPCS: 99213

== ENCOUNTER 2023-03-31 13:18 | Outpatient (AMB) | payer BC, SELFPAY ==
--- NOTE | 2023-03-31 13:27 | MHC.PC.OV ---
Vital Signs 03/31/23 13:28 Height 5 ft 5 in Weight 212 lb BMI 35.3 BP 110/80 Blood Pressure Location Lt brachial Position Sitting Pulse 82 Pulse Source Pulse Oximeter Pulse Oximetry (%) 98 Oxygen Delivery Method Room Air Intake Visit Reasons: New Patient-Hypothyroid Line Service Attendant: Not Required per policy Accompanied by: Self / Same As Patient Allergies No Known Allergies Allergy (Verified 03/31/23 13:39) Medication List - Last Reconciled 03/31/23 by JOHN Kong levothyroxine 125 mcg PO DAILY Tobacco use date assessed: 03/31/23 Dental Screening Dental Screen Date: 03/31/23 Did you have a dental visit in the last 12 months?: Yes Did you have a dental problem in the last 6 months where you did not have access to dental care?: No Was dental information given to patient?: Patient has dentist HPI HPI Comments History of Present Illness Details 57-year-old new patient patient past medical history significant for acquired hypothyroidism patient reports history of decrease disease status post radioactive iodine treatment at age 29. Patient continues on levothyroxine at 125 mcg daily. Patient denies any chest pain, palpitations, shortness of breath or syncope. Patient presents today for physical exam. Previous pcp: Dr. Ysabel Romero [facility] [place]. Cologuard: 2020, negative Mammorgram: Scheduled on monday, [facility] pap smears: Scheduled for August 2023. eye exam: April 2023 [facility] Surgical History (Updated 03/31/23 @ 13:41 by JOHN Kong) Tubal ligation status Family History (Updated 03/31/23 @ 13:33 by BRAYDEN Chavarria) Mother Diabetes mellitus Social History Housing: House Patient Tobacco Use Status: Never used Tobacco Current occupational status: employed Cognitive needs: No Hearing needs: No Vision needs: Yes Questionnaire PHQ-9 Over the last 2 weeks, how often have you been bothered by any of the following problems? 1. Little interest or pleasure in doing things: not at all 2. Feeling down, depressed, or hopeless: not at all 3. Trouble falling or staying asleep, or sleeping too much: not at all 4. Feeling tired or having little energy: not at all 5. Poor appetite or overeating: not at all 6. Feeling bad about yourself - or that you are a failure or have let yourself or your family down: not at all 7. Trouble concentrating on things, such as reading the newspaper or watching television: not at all 8. Moving or speaking so slowly that other people could have noticed. Or the opposite - being so fidgety or restless that you have been moving around a lot more than usual: not at all 9. Thoughts that you would be better off or of hurting yourself in some way: not at all Total score: 0 Depression Screening Interpretation: Negative Depression Screening Done: Yes 15754 - PHQ-9 Billing: Yes Source: Developed by Drs. Irving Baird, lGadys Michaels, Edmund Ryan and colleagues, with an educational julio césar from [employer] Thrive Questionnaire Date Thrive assessed: 03/31/23 I am a: Patient What is your living situation today?: I have a steady place to live Within the past 12 months, did the food you bought not last and you didn't have the money to get more?: Never true Within the past 12 months, did you worry whether your food would run out before you got money to buy more?: Never true Do you have trouble paying for medicines?: No Do you have trouble getting transportation to medical appointments?: No Do you have trouble paying your heating and electricity bill?: No Do you have trouble taking care of your child, family member or friend?: No Do you have trouble with day-to-day activities such as bathing, preparing meals, shopping, managing finances, etc.?: No Are you currently unemployed and looking for a job?: No Are you interested in more education?: No Please select the resources that you would like help with: None AUDIT C Alcohol Use Questionnaire (AUDIT-C) 1. How often do you have a drink containing alcohol?: Never Total Score: 0 ERIC-7 AMB Questionnaire ERIC-7 Date ERIC - 7 assessed: 03/31/23 Feeling nervous, anxious, or on edge: 1 = Several days Not being able to stop or control worryin = Not at all Worrying too much about different things: 1 = Several days Trouble relaxin = Not at all Being so restless that it is hard to sit still: 0 = Not at all Becoming easily annoyed or irritable: 0 = Not at all Feeling afraid as if something awful might happen: 0 = Not at all Total ERIC-7 score (0-4 normal; 5-9 mild; 10-14 moderate; 15-21 severe): 2 Source: Developed by Drs. Irving Baird, Gladys Michaels, Edmund Ryan and colleagues, with an educational julio césar from [employer] ERIC-7 Assessment Billing ERIC-7 Assessment Tool: ERIC-7 Assessment 94383 Review of Systems Const Denies chills, Denies fatigue, Denies fever(s) and Denies poor appetite Eyes Denies no additional complaints ENT Reports Normal hearing present Card Denies chest pain, Denies syncope, Denies rapid heart rate and Denies dyspnea Resp Denies cough and Denies dyspnea GI Denies change in stool character, Denies constipation, Denies diarrhea, Denies nausea and Denies vomiting Denies urinary frequency, Denies dysuria and Denies urinary urgency Neuro Reports Normal hearing present, Denies confusion and Denies syncope Psych Denies confusion Endo Denies fatigue Physical exam (Primary Care) Vital Signs: Last Vital Signs Pulse 82 03/31/23 13:28 BP 110/80 03/31/23 13:28 Pulse Ox 98 03/31/23 13:28 Oxygen Delivery Method Room Air 03/31/23 13:28 BMI result Body Mass Index 35.3 Tobacco/Smoking Status: Tobacco use Status Tobacco use date assessed 03/31/23 03/31/23 13:29 Patient Tobacco Use Status Never used Tobacco 03/31/23 13:29 PHQ-9: PHQ-9 Score PHQ-9: Total score 0 03/31/23 13:44 Depression Screening Interpretation: Negative Thrive Assessment: Date of Thrive Assessment Date Thrive assessed 03/31/23 03/31/23 13:29 Const General: No confusion Orientation/consciousness: No confusion HENMT Head: Yes normocephalic and Yes atraumatic Ears: external ears normal and TM's normal bilaterally General nose exam: Normal external nose present and Normal nasal mucous membranes and turbinates present Face and sinus: Yes normal facial exam and Yes sinuses nontender Mouth: moist mucous membranes Throat: Yes tonsils normal Eyes Conjunctivae: conjunctivae normal Sclerae: sclerae normal Pupils: Equal, round and reactive pupils present and Pupils normal by confrontation EOM: EOMs intact bilaterally Direct Ophthalmoscopy: normal light reflex Neck Neck: Yes no lymphadenopathy and Yes supple Thyroid: Thyroid normal Chest Chest palpation & inspection: normal inspection of the chest Resp Effort & Inspection: normal respiratory effort Auscultation: clear to auscultation bilaterally, no crackles, no rhonchi and no wheezes Cardio Rate: regular rate Rhythm: regular rhythm Peripheral pulses: radial pulses present and dorsalis pedis present GI Inspection: Yes normal to inspection Palpation (GI): Soft to palpation, nontender and No hepatosplenomegaly present Auscultation: normoactive bowel sounds Skin General skin exam: no rashes or lesions noted Neuro General: No confusion Cranial nerves: Yes Equal, round and reactive pupils present and Yes Normal hearing present Cognition (Neuro): normal cognition Gait exam (Neuro): Normal gait present Motor exam (neuro): 5/5 motor strength present throughout Deep tendon reflexes (DTR's): Right brachioradialis reflex intensity grade: 2+, Left brachioradialis reflex intensity grade: 2+, Right patellar reflex intensity grade: 2+ and Left patellar reflex intensity grade: 2+ Extrem General: No edema Assessment and Plan Assessment & Plan (1) Hypothyroidism (acquired): Comment: hx Graves, age 29 Radioctive iodine trt. Code(s): E03.9 - Hypothyroidism, unspecified Plan: Continue on levothyroxine. TSH with reflex T4 ordered. (2) Physical exam, annual: Code(s): Z00.00 - Encounter for general adult medical examination without abnormal findings Plan: Recommended follow-up in 1 year. Plan Follow-up in 1 year for physical exam or sooner if needed. Orders: Orders Complete Blood Count Auto Diff Today Z13.0 - Encounter for screening for diseases of the blood and blood-forming organs and certain disorders involving the immune mechanism Lipid Panel Today Z13.220 - Encounter for screening for lipoid disorders TSH reflex Free T4 Today Z13.29 - Encounter for screening for other suspected endocrine disorder Vitamin D 25-OH Total Today Z13.21 - Encounter for screening for nutritional disorder Comprehensive [place]. Panel Fast Today E03.9 - Hypothyroidism, unspecified Medications: Refilled levothyroxine 125 mcg PO DAILY 30 caps 0RF Coding Level of Care Code New Pt Prev Care 40-64y(39729) Diagnoses Hypothyroidism (acquired) E03.9 Physical exam, annual Z00.00 Additional Codes ERIC-7 Assessment Billing - ERIC-7 Assessment Tool: ERIC-7 Assessment 84798 ([id number])
[2023-03-31 13:28] VITALS: BP 110/80; PULSE 82; O2SAT 98; BMI 35.3
== END 2023-03-31 13:58 | disposition home or self-care (01) ==
PROVIDERS: Visit Provider Nurse Practitioner Family
DX: E03.9 Hypothyroidism, unspecified (principal); Z00.00 Encounter for general adult medical examination without abnormal findings
CPT/HCPCS: 99386

== ENCOUNTER 2023-04-03 09:55 | Outpatient (REF) | payer BC, SELFPAY ==
[2023-04-03 13:36] LABS: MANUAL DIFF FLAG NO
[2023-04-03 13:44] LABS: Basophils Percent Auto 0.7 % (0-2); Eosinophils Absolute Auto 0.2 X10*3/uL (0.0-0.4); Eosinophils Percent Auto 4.5 % (0-4); Hematocrit 39.2 % (37.0-47.0); Hemoglobin 12.5 g/dl (12.0-16.0); Imm Gran Abs Auto 0.01 X10*3/uL (0.00-0.03); Imm Gran Pct Auto 0.2 % (0.0-0.4); Lymphocytes Absolute Auto 1.3 X10*3/uL (1.2-4.9); Lymphocytes Percent Auto 30.3 % (20-40); Mean Corpuscular HGB Conc 31.9 g/dl (31.0-35.0); Mean Corpuscular Hemoglobin 29.1 pg (27.0-33.0); Mean Corpuscular Volume 91.4 fL (80.0-98.0); Monocytes Absolute Auto 0.3 X10*3/uL (0.1-1.2); Monocytes Percent Auto 7.6 % (2-11); Neutrophils Absolute Auto 2.4 x10*3/uL (2.0-8.3); Neutrophils Percent Auto 56.7 % (45-73); Platelet Count 221 X10*3/uL (160-400); Red Blood Count 4.29 X10*6/uL (4.20-5.50); Red Cell Distribution Width 12.5 % (11.0-16.0); White Blood Count 4.2 X10*3/uL (4.8-10.8)
[2023-04-03 14:08] LABS: Alanine Aminotransferase 11 U/L (0-31); Albumin Level 4.2 g/dL (3.5-5.0); Alkaline Phosphatase 75 U/L (39-117); Anion Gap 12 (12-20); Aspartate Amino Transferase 17 U/L (5-31); Bilirubin Total 0.5 mg/dL (0.0-1.0); Blood Urea Nitrogen 14 mg/dL (9-16); Carbon Dioxide 25 mmol/L (22-29); Chloride 108 mmol/L (96-108); Cholesterol 142 mg/dL (<200); Estimated Glomerular Filt Rate > 60; Glucose Fasting 108 mg/dL (60-99); HDL Cholesterol 52 mg/dL (>40); LDL Cholesterol Calculated 78 mg/dL (<100); Potassium 3.8 mmol/L (3.3-5.1); Sodium 141 mmol/L (135-145); Total Protein 6.8 g/dL (6.5-8.0); Triglycerides 63 mg/dL (<150)
[2023-04-03 14:29] LABS: TSH reflex Free T4 0.47 uIU/mL (0.32-4.0); Vitamin D 25-OH Total 24.3 ng/mL (>30)
== END 2023-04-03 09:56 | disposition home or self-care (01) ==
LOC: HO.HMGCLDS 09:55
PROVIDERS: PCP Nurse Practitioner Family; Visit Provider Nurse Practitioner Family
DX: Z00.00 Encounter for general adult medical examination without abnormal findings (principal); E55.9 Vitamin D deficiency, unspecified; E03.9 Hypothyroidism, unspecified; Z13.0 Encounter for screening for diseases of the blood and blood-forming organs and certain disorders involving the immune mechanism; Z13.220 Encounter for screening for lipoid disorders; Z13.29 Encounter for screening for other suspected endocrine disorder; Z13.21 Encounter for screening for nutritional disorder
CPT/HCPCS: 36415; 80053; 80061; 82306; 84443; 85025

== ENCOUNTER 2024-03-05 14:51 | Outpatient (AMB) | payer BC, SELFPAY ==
--- NOTE | 2024-03-05 15:01 | A.OFFPC_ITS ---
Vital Signs 03/05/24 15:04 Height 5 ft 4.5 in Weight 222 lb 8 oz BMI 37.6 BP 131/65 Blood Pressure Location Lt brachial Position Sitting Respiration 14 Pulse 56 Pulse Source Pulse Oximeter Temp 96.6 F L Temp Source Temporal Artery Scan Pulse Oximetry (%) 98 Oxygen Delivery Method Room Air Intake Visit Reasons: establish care-Ashleigh Intake Note: establish care Allergies No Known Allergies Allergy (Verified 03/05/24 15:02) Medication List - Last Reconciled 03/05/24 by To Tamez MD levothyroxine 125 mcg PO DAILY Tobacco use date assessed: 03/05/24 Dental Screening Dental Screen Date: 03/05/24 Did you have a dental visit in the last 12 months?: Yes Did you have a dental problem in the last 6 months where you did not have access to dental care?: No Was dental information given to patient?: Patient has dentist HPI establish care-Ashleigh HPI Details New Patient? ?? Prior PCP:? Dr Desai, Dr Zaldivar Last office visit/CPE:? Acute issue(s):? Constipation Elevated BS ?? PMHx:? Acquired Hypothyroidism after Graves & Radioiodine, SurgHx:?Tubal Ligation. FHx:? Mom: CHF, DM. Dad: COPD, CHF. Gout. SocHx: Nonsmoker. EtOH rare 1-2dr. No Drugs Cologuard: 2020, negative Mammorgram: [facility] 2 yrs ago pap smears: Scheduled w/ [facility] tis year eye exam: April 2023 [facility] Surgical History (Updated 03/31/23 @ 13:41 by JOHN Kong) Tubal ligation status Family History (Updated 03/31/23 @ 13:33 by Gregoria John [facility]) Mother Diabetes mellitus Social History (Updated 03/05/24 @ 15:03 by Bettina Dickey [facility]) Housing: House Patient Tobacco Use Status: Never used Tobacco e-Cigarette/Vaping Use: Never Used service: No Current occupational status: employed Current occupation: [employer] Current occupational exposures/hazards: Yes Cognitive needs: No Hearing needs: No Vision needs: Yes Questionnaire PHQ-9 Over the last 2 weeks, how often have you been bothered by any of the following problems? 1. Little interest or pleasure in doing things: several days 2. Feeling down, depressed, or hopeless: not at all 3. Trouble falling or staying asleep, or sleeping too much: several days 4. Feeling tired or having little energy: nearly every day 5. Poor appetite or overeating: nearly every day 6. Feeling bad about yourself - or that you are a failure or have let yourself or your family down: not at all 7. Trouble concentrating on things, such as reading the newspaper or watching television: several days 8. Moving or speaking so slowly that other people could have noticed. Or the opposite - being so fidgety or restless that you have been moving around a lot more than usual: not at all 9. Thoughts that you would be better off or of hurting yourself in some way: not at all Total score: 9 Depression Screening Interpretation: Positive Depression Screening Done: Yes 75748 - PHQ-9 Billing: Yes Source: Developed by Drs. Irving Baird, Gladys Michaels, Edmund Ryan and colleagues, with an educational julio césar from [employer]. Thrive Questionnaire Date Thrive assessed: 03/05/24 I am a: Patient What is your living situation today?: I have a steady place to live Within the past 12 months, did the food you bought not last and you didn't have the money to get more?: Never true Within the past 12 months, did you worry whether your food would run out before you got money to buy more?: Never true Do you have trouble paying for medicines?: No Do you have trouble getting transportation to medical appointments?: No Do you have trouble paying your heating and electricity bill?: No Do you have trouble taking care of your child, family member or friend?: No Do you have trouble with day-to-day activities such as bathing, preparing meals, shopping, managing finances, etc.?: No Are you currently unemployed and looking for a job?: No Are you interested in more education?: No Please select the resources that you would like help with: None Currently or been in a relationship where the following occur: No concerns reported THRIVE Score: 0 AUDIT C Alcohol Use Questionnaire (AUDIT-C) 1. How often do you have a drink containing alcohol?: Monthly or less 2. How many drinks containing alcohol do you have on a typical day when you are drinking?: 1 or 2 3. How often do you have six or more drinks on one occasion?: Never Total Score: 1 ERIC-7 AMB Questionnaire ERIC-7 Date ERIC - 7 assessed: 03/05/24 Feeling nervous, anxious, or on edge: 1 = Several days Not being able to stop or control worryin = Several days Worrying too much about different things: 1 = Several days Trouble relaxin = Several days Being so restless that it is hard to sit still: 0 = Not at all Becoming easily annoyed or irritable: 1 = Several days Feeling afraid as if something awful might happen: 0 = Not at all Total ERIC-7 score (0-4 normal; 5-9 mild; 10-14 moderate; 15-21 severe): 5 Source: Developed by Drs. Irving Baird, Gladys Michaels, Edmund Ryan and colleagues, with an educational julio césar from [employer]. ERIC-7 Assessment Billing ERIC-7 Assessment Tool: ERIC-7 Assessment 63498 Review of Systems Const Denies chills, Denies fatigue, Denies fever(s), Denies headache(s) and Denies weakness ENT Denies dizziness and Denies headache(s) Card Denies chest pain, Denies lightheadedness, Denies dyspnea and Denies other (Palpitations) Resp Denies cough, Denies dyspnea, Denies wheezing and Denies other ( shortness of breath) Musc Denies numbness and Denies tingling Neuro Denies dizziness, Denies headache(s), Denies numbness, Denies tingling, Denies paresthesias and Denies weakness Psych Denies anxiety and Denies depression Endo Denies fatigue Aller/Immun Denies wheezing Physical exam (Primary Care) Vital Signs: Last Vital Signs Temp 96.6 F L 03/05/24 15:04 Pulse 56 03/05/24 15:04 Resp 14 03/05/24 15:04 BP 131/65 03/05/24 15:04 Pulse Ox 98 03/05/24 15:04 Oxygen Delivery Method Room Air 03/05/24 15:04 BMI result Body Mass Index 37.6 Tobacco/Smoking Status: Tobacco use Status Tobacco use date assessed 03/05/24 03/05/24 15:08 Patient Tobacco Use Status Never used Tobacco 03/05/24 15:08 e-Cigarette/Vaping Use Never Used 03/05/24 15:08 PHQ-9: PHQ-9 Score PHQ-9: Total score 9 03/05/24 15:08 Depression Screening Interpretation: Positive Thrive Assessment: Date of Thrive Assessment Date Thrive assessed 03/05/24 03/05/24 15:08 Currently or been in a relationship where the following occur: No concerns reported Const General: no acute distress and well developed Nutritional Appearance: well nourished Orientation/consciousness: patient oriented x3 HENMT Head: Yes normocephalic and Yes atraumatic Eyes General: appearance normal, both eyes and all related structures Pupils: Equal, round and reactive pupils present EOM: EOMs intact bilaterally Resp Effort & Inspection: normal respiratory effort Auscultation: clear to auscultation bilaterally Cardio Rate: regular rate Rhythm: regular rhythm Heart sounds: S1 normal heart sound present, S2 normal heart sound present, no gallops, no murmurs and no rubs Neuro General: patient oriented x3 and gait normal Cranial nerves: Yes Equal, round and reactive pupils present Psych Affect: normal affect Coding Level of Care Code New Pt Level 3 (90165) Diagnoses Hypothyroidism (acquired) E03.9 Constipation K59.00 Pre-diabetes R73.03 Obesity E66.9 Fatigue R53.83 Family history of heart disease Z82.49 Laboratory exam ordered as part of routine general medical examination Z00.00 Cyst of skin L72.9 Additional Codes ERIC-7 Assessment Billing - ERIC-7 Assessment Tool: ERIC-7 Assessment 42007 ([id number]) Assessment & Plan Assessment & Plan (1) Hypothyroidism (acquired): Comment: hx Juan R, age 29 Radioctive iodine trt. 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 (7) Laboratory exam ordered as part of routine general medical examination: Code(s): Z00.00 - Encounter for general adult medical examination without abnormal findings Category: Medical Plan: Check?labs (8) Cyst of skin: Code(s): L72.9 - Follicular cyst of the skin and subcutaneous tissue, unspecified Category: Medical Plan: Patient?has?2?cysts?on?posterior?aspect?her?3rd?finger. She?had?tried?to?drain?the?more?distal?cyst?which?is?adjacent?to?her?nail.??This ?appears?to?have?been?infected?and?is?mildly?infected?still. Will?give?her?Bactrim?and?advised?warm?soaks Call?or?return?to?office?if?worsening?or?not?improving?for?evaluation?and?consid eration?for?incision?and?drainage. Orders: Orders Comprehensive [place]. Panel Fast Today Z00.00 - Encounter for general adult medical examination without abnormal findings Lipid Panel Today Z00.00 - Encounter for general adult medical examination without abnormal findings Triiodothyronine T3 Total Today E03.9 - Hypothyroidism, unspecified Free T4 (Free Thyroxine) Today E03.9 - Hypothyroidism, unspecified Microalbumin, Random (w Creat) Today I10 - Essential (primary) hypertension Thyroid Stimulating Hormone Today E03.9 - Hypothyroidism, unspecified UA and rflx microscopic Today Z00.00 - Encounter for general adult medical examination without abnormal findings Complete Blood Count Auto Diff Today Z00.00 - Encounter for general adult medical examination without abnormal findings Hemoglobin A1c Today R73.01 - Impaired fasting glucose AMB EKG-In Office Today E03.9 - Hypothyroidism, unspecified, Z00.00 - Encounter for general adult medical examination without abnormal findings, Z82.49 - Family history of ischemic heart disease and other diseases of the circulatory system Medications: New sulfamethoxazole-trimethoprim 800-160 mg (Bactrim DS) 1 tab PO Q12H 10 days 20 tabs 0RF Changed From levothyroxine 125 mcg PO DAILY 90 tabs 4RF To levothyroxine 125 mcg PO DAILY 90 days 90 tabs 3RF
[2024-03-05 15:04] VITALS: BP 131/65; PULSE 56; RESP 14; TEMP 35.9; O2SAT 98; BMI 37.6
== END 2024-03-05 16:02 | disposition home or self-care (01) ==
PROVIDERS: PCP Family Medicine; Visit Provider Family Medicine
DX: E03.9 Hypothyroidism, unspecified (principal); K59.00 Constipation, unspecified; Z68.37 Body mass index [BMI] 37.0-37.9, adult; E66.812 Obesity, class 2; R73.03 Prediabetes; R53.83 Other fatigue; Z82.49 Family history of ischemic heart disease and other diseases of the circulatory system; L72.9 Follicular cyst of the skin and subcutaneous tissue, unspecified

== ENCOUNTER → 2024-03-05 14:51 | Outpatient (BNVA) | payer BC, SELFPAY | PROVIDERS: PCP Family Medicine; Visit Provider Family Medicine ==

== ENCOUNTER 2024-03-05 15:54 | Outpatient (REF) | payer BC, SELFPAY ==
[2024-03-05 17:38] LABS: MANUAL DIFF FLAG NO
[2024-03-05 17:44] LABS: Appearance Urine Clear; Color Urine Yellow; Glucose Urine UA Negative (Negative); Leukocyte Esterase Urine Trace (Negative); Nitrite Urine Negative (Negative); Specific Gravity - Urine 1.015 (1.005-1.025); UMIC TRIGGER UA YES; Urine Blood Negative (Negative); Urine Ketones Negative (Negative); Urine Protein Negative (Neg-Trace)
[2024-03-05 17:46] LABS: Basophils Percent Auto 0.7 % (0-2); Eosinophils Absolute Auto 0.2 X10*3/uL (0.0-0.4); Eosinophils Percent Auto 4.3 % (0-4); Hematocrit 40.7 % (37.0-47.0); Hemoglobin 13.6 g/dl (12.0-16.0); Imm Gran Abs Auto 0.01 X10*3/uL (0.00-0.03); Imm Gran Pct Auto 0.2 % (0.0-0.4); Lymphocytes Percent Auto 24.6 % (20-40); Mean Corpuscular HGB Conc 33.4 g/dl (31.0-35.0); Mean Corpuscular Hemoglobin 29.3 pg (27.0-33.0); Mean Corpuscular Volume 87.7 fL (80.0-98.0); Mean Platelet Volume 10.8 fL (9.4-12.3); Monocytes Absolute Auto 0.3 X10*3/uL (0.1-1.2); Neutrophils Absolute Auto 2.6 x10*3/uL (2.0-8.3); Neutrophils Percent Auto 63.2 % (45-73); Platelet Count 229 X10*3/uL (160-400); Red Blood Count 4.64 X10*6/uL (4.20-5.50); Red Cell Distribution Width 12.5 % (11.0-16.0); White Blood Count 4.1 X10*3/uL (4.8-10.8)
[2024-03-05 17:48] LABS: Bacteria Urine None Seen (None Seen); Hyaline Casts Urine 0-2 /LPF (0-2); RBC Urine 0-2 /HPF (0-2); Squamous Epithelial Cell Urine 0-2 /HPF (0-2); WBC Urine 0-5 /HPF (0-5)
[2024-03-05 18:00] LABS: Creatinine Urine 63.19 mg/dL; Microalbumin Urine < 5.0 mg/L
[2024-03-05 18:34] LABS: Alanine Aminotransferase 17 U/L (0-31); Albumin Level 4.5 g/dL (3.5-5.0); Alkaline Phosphatase 81 U/L (39-117); Anion Gap 12 (12-20); Aspartate Amino Transferase 20 U/L (5-31); Bilirubin Total 0.7 mg/dL (0.0-1.0); Blood Urea Nitrogen 16 mg/dL (9-16); Calcium 9.7 mg/dL (8.4-10.2); Carbon Dioxide 28 mmol/L (22-29); Chloride 106 mmol/L (96-108); Cholesterol 157 mg/dL (<200); Estimated Glomerular Filt Rate > 60; Glucose Fasting 101 mg/dL (60-99); HDL Cholesterol 54 mg/dL (>40); LDL Cholesterol Calculated 88 mg/dL (<100); Potassium 4.1 mmol/L (3.3-5.1); Sodium 142 mmol/L (135-145); Total Protein 7.2 g/dL (6.5-8.0); Triglycerides 77 mg/dL (<150)
[2024-03-05 18:49] LABS: Free T4 (Free Thyroxine) 1.18 ng/dL (0.71-1.85); Thyroid Stimulating Hormone 0.34 uIU/mL (0.32-4.0)
[2024-03-06 07:02] LABS: Estimated Average Glucose 111 mg/dL; Hemoglobin A1C 122.0364 umol/L; Hemoglobin A1c % 5.5 % (<6.0); Total Hemoglobin (HGBA1C) 3355.6723 umol/L
[2024-03-06 07:29] LABS: Triiodothyronine T3 Total 106 ng/dL (76-181)
== END 2024-03-05 15:55 | disposition home or self-care (01) ==
LOC: HO.WFDLDS 15:54
PROVIDERS: Visit Provider Family Medicine
DX: Z00.00 Encounter for general adult medical examination without abnormal findings (principal); E03.9 Hypothyroidism, unspecified; K59.00 Constipation, unspecified; R73.03 Prediabetes; E66.9 Obesity, unspecified; R53.83 Other fatigue; Z82.49 Family history of ischemic heart disease and other diseases of the circulatory system; L72.9 Follicular cyst of the skin and subcutaneous tissue, unspecified
CPT/HCPCS: 36415; 80053; 80061; 81001; 82570; 83036; 84439; 84443; 84480; 85025; 96127

== ENCOUNTER 2024-03-19 09:19 | Emergency (ER) | payer BC, SELFPAY ==
--- NOTE | ~2024-03-19 | XR_ITS ---
EXAMINATION: XR CHEST CLINICAL INFORMATION: Cough COMPARISON: None available. TECHNIQUE: 2 views of the chest were obtained. FINDINGS: There is mild elevation of the left hemidiaphragm of uncertain chronicity. Lungs are grossly clear. No pleural effusions. Heart and pulmonary vessels are normal. XR/XR chest 2V IMPRESSION: No active disease. Electronically signed by: Kel Hoover MD 03/19/2024 11:16 AM EDT
[2024-03-19 09:25] VITALS: BP 113/61; PULSE 70; RESP 19; TEMP 37.2; O2SAT 97; BMI 37.8
--- NOTE | 2024-03-19 10:04 | ED_ITS ---
HPI - Allergic Reaction General Chief complaint: Allergic Reaction Stated complaint: Allergic reaction, sent by urgent care Time Seen by Provider: 03/19/24 10:03 Source: patient and RN notes reviewed Mode of arrival: ambulatory Limitations: no limitations History of Present Illness ED Provider: Patsy Muniz PA-C [facility] narrative: This is a 58-year-old female who presents emergency department with complaints of 2 days of rash. Patient reports that she was placed on a 10 day course of Bactrim which she completed yesterday. She states that on Monday, 3 days ago she started to feel body aches, congestion and a cough. She states that 2 days ago she developed a rash that started on her chest, and has since progressed throughout her entire body. She was seen at an urgent care and was told to report to the emergency room for further evaluation. She reports no documented fevers, no chest pain, shortness of breath, difficulty swallowing, difficulty breathing, any rash within the mouth, sore throat, abdominal pain, nausea, vomiting, or diarrhea. Denies history of similar symptoms in the past. No other complaints or concerns at this time. MD complaint: allergic reaction Onset (ago): day(s) Exposure: medication Severity: moderate Treatment prior to arrival: none Previous Allergic Reaction History: none Related Data Previous Rx's ?Medication ?Instructions ?Recorded levothyroxine 125 mcg tablet 125 mcg PO DAILY 90 days #90 tabs 03/05/24 benzonatate 200 mg capsule 200 mg PO TID PRN cough 5 days #15 03/19/24 caps prednisone 20 mg tablet 40 mg (2 x 20 mg) PO DAILY 4 days 03/19/24 #8 tabs Allergies Allergy/AdvReac Type Severity Reaction Status Date / Time No Known Allergies Allergy Verified 03/19/24 09:28 Review of Systems 2 Review of Systems: Yes all other systems are reviewed and are negative Constitutional: Constitutional: Reports as per [facility] Past Medical History Attestation statement: The following information was validated with the patient. Surgical History Tubal ligation status Family History Family History Mother Diabetes mellitus Social History Social History Housing: House Patient Tobacco Use Status: Never used Tobacco Smoked in Last 30 Days: No e-Cigarette/Vaping Use: Never Used Any prior treatment program specific to substance use: No Advance Directives: No Advance Directives Information Provided: Yes Do you have a plan to hurt others: No Plan Patient : No service: No Current occupational status: employed Current occupation: [employer] Current occupational exposures/hazards: Yes Cognitive needs: No Hearing needs: No Vision needs: Yes Physical Exam ED Vital Signs: Vital Signs - 24 hr 03/19/24 09:25 03/19/24 10:44 03/19/24 12:34 Temperature 98.9 F 98.5 F Pulse Rate 70 61 63 Respiratory Rate 19 14 16 Blood Pressure 113/61 100/41 L 96/62 Pulse Oximetry 97 97 95 Oxygen Delivery Method Room Air Room Air Room Air 03/19/24 13:58 Temperature 98.5 F Pulse Rate 63 Respiratory Rate 16 Blood Pressure 96/62 Pulse Oximetry 95 Oxygen Delivery Method Room Air BMI result Body Mass Index 37.8 Const General: cooperative, comfortable and no acute distress Orientation/consciousness: patient oriented x3 Limitations: no limitations HENMT Other: No oropharyngeal involvement Head: Yes normal to inspection, Yes normocephalic and Yes atraumatic Ears: hearing grossly normal bilaterally General nose exam: Normal external nose present Face and sinus: Yes normal facial exam Mouth: Normal oral and palatal mucosa present, oropharynx normal and moist mucous membranes Throat: Yes posterior oropharynx normal Eyes General: appearance normal, both eyes and all related structures Eyelids: Yes eyelids normal Conjunctivae: conjunctivae normal Sclerae: sclerae normal Pupils: Equal, round and reactive pupils present EOM: EOMs intact bilaterally Neck Neck: Yes normal visual inspection, Yes full ROM and Yes no lymphadenopathy Lymphatic: no lymphadenopathy noted Chest Chest palpation & inspection: normal inspection of the chest Resp Effort & Inspection: normal respiratory effort and able to speak in complete sentences Auscultation: clear to auscultation bilaterally, no crackles, no rales, no rhonchi and no wheezes Cardio Rate: regular rate Rhythm: regular rhythm Heart sounds: S1 normal heart sound present and S2 normal heart sound present GI Inspection: Yes normal to inspection Skin Other: Diffuse macular papular rash noted throughout the body, sparing face, palms, and feet, no sloughing, or blisters appreciated. Rashes blanchable. Neuro General: patient oriented x3 and moves all extremities Cranial nerves: Yes Equal, round and reactive pupils present Extrem General: Yes normal to inspection Right upper extremity: normal to inspection Left upper extremity: normal to inspection Right lower extremity: normal to inspection Left lower extremity: normal to inspection Medications Administered Discontinued Medications Generic Name Dose Route Start Last Admin Trade Name Cecil PRN Reason Stop Dose Admin Diphenhydramine HCl 50 mg 03/19/24 10:37 03/19/24 11:01 Diphenhydramine Hcl 25 Mg Capsule PO 03/19/24 10:38 50 mg ONCE ONE Administration Prednisone 40 mg 03/19/24 10:37 03/19/24 11:01 Prednisone 20 Mg Tablet PO 03/19/24 10:38 40 mg ONCE ONE Administration Medical Decision Making Medical Decision Making [facility] Narrative: This is a 58-year-old female who presents emergency department with complaints of diffuse rash noted to the entire body sparing the soles, and face. She recently completed a full course of Bactrim yesterday however noticed a rash 2 days ago. She also reports that she had body aches, cough, and congestion starting several days ago. On arrival, vital signs within normal limits. She is well-appearing. Skin with maculopapular rash, blanchable. Concerning for delayed allergic reaction. Consideration of Celestino Gibson syndrome. I discussed this with my attending physician, Dr. Matos, and given presentation and appearance, with no skin sloughing, unlikely SJS. Will obtain chest x-ray, viral swabs to rule out any a viral exanthems. Swabs were unremarkable. Chest x-ray was unremarkable. Patient was medicated with prednisone and Benadryl in the department, and improvement of rash overall. Discussed with patient that she should not take Bactrim in the future. Given strict return precautions. She understands and agrees with plan. Patient stable for discharge. Differential Diagnosis Differential Diagnoses: The differential diagnosis associated with the presentation includes SJS, allergic Admission/Observation Consideration of admission/observation: Escalation of care including admission/observation considered Lab Data [facility] Lab Attestation statement: I reviewed the patient's lab results. Labs: Lab Results 03/19/24 Range/Units 10:43 Respiratory Panel Hope See Note Adenovirus (Rapid PCR) Not Detected (Not Detect.) B.pert (TEM-PCR) Not Detected (Not Detect.) B.parapertussis DNA PCR Not Detected (Not Detect.) C. pneumoniae DNA (PCR) Not Detected (Not Detect.) Coronavirus OC43 (PCR) Not Detected (Not Detect.) Coronavirus HKU1 (PCR) Not Detected (Not Detect.) Coronavirus 229E (PCR) Not Detected (Not Detect.) Coronavirus NL63 (PCR) Not Detected (Not Detect.) Human Metapneumovir PCR Not Detected (Not Detect.) Influenza A (RT-PCR) Not Detected (Not Detect.) Influenza B (RT-PCR) Not Detected (Not Detect.) M. pneumoniae (PCR) Not Detected (Not Detect.) Parainfluenza 1 (PCR) Not Detected (Not Detect.) Parainfluenza 2 (PCR) Not Detected (Not Detect.) Parainfluenza 3 (PCR) Not Detected (Not Detect.) Parainfluenza 4 (PCR) Not Detected (Not Detect.) RSV (PCR) Not Detected (Not Detect.) Entero/Rhino (PCR) Not Detected (Not Detect.) SARS-CoV-2 RNA (RT-PCR) Not Detected (Not Detect.) S. pyogenes GrpA SAMANTHA Negative (Negative) Radiology Impression Discussion of test interpretation with radiology: I have reviewed the radiologist's reading. External Record Review External record reviewed: Inpatient record, Office record, Outpatient record, Prior outpatient labs, Prior outpatient radiology, Primary care record and Outside ED record Discharge Plan Discharge Clinical Impression: Adverse drug reaction Patient Disposition: Home, Self-Care Instructions: General Allergic Reaction (ED) Additional Instructions: You were seen in the emergency department due to a rash. This is likely a rash secondary to the antibiotic, Bactrim. This is a allergic reaction, please do not take Bactrim in the future. Please continue taking prednisone, you already received your 1st dose in the department today. Please continue taking prednisone as directed for the next 4 days. Continue taking Benadryl as needed. Follow-up with your primary care physician. If any new or worsening symptoms occur including but not limited to worsening rash, high fevers, shortness for breath, changes in rash, any blistering, or sloughing of skin please immediately seek emergent care. I am also prescribing you Tessalon, this is a medication to help with cough. Prescriptions: New prednisone 20 mg tablet 40 mg PO DAILY 4 Days Qty: 8 0RF benzonatate 200 mg capsule 200 mg PO TID PRN (Reason: cough) 5 Days Qty: 15 0RF No Action levothyroxine 125 mcg tablet 125 mcg PO DAILY 90 Days Qty: 90 3RF Stand Alone Forms: Work/School Release Interventions: ED Discharge Assessment Last Done: 03/19/24 13:58 Discharge Date/Time: 03/19/24 14:05 Print Language: Chinese
[2024-03-19 10:44] VITALS: BP 100/41; PULSE 61; RESP 14; O2SAT 97
[2024-03-19] MEDS: predniSONE 20 MG TABLET 40 MG PO (11:01)
[2024-03-19] MEDS: diphenhydrAMINE HCL 25 MG CAPSULE 50 MG PO (11:01)
[2024-03-19 11:06] LABS: IDNOW Serial# 08D9AD1C; Strep A Nucleic Acid Negative (Negative)
[2024-03-19 12:34] VITALS: BP 96/62; PULSE 63; RESP 16; TEMP 36.9; O2SAT 95
[2024-03-19 13:03] LABS: Adenovirus PCR Not Detected (Not Detect.); Bordetella parapertussis PCR Not Detected (Not Detect.); Bordetella pertussis PCR Not Detected (Not Detect.); Chlamydia pneumoniae PCR Not Detected (Not Detect.); Coronavirus 229E PCR Not Detected (Not Detect.); Coronavirus HKU1 PCR Not Detected (Not Detect.); Coronavirus NL63 PCR Not Detected (Not Detect.); Coronavirus OC43 PCR Not Detected (Not Detect.); Human metapneumovirus PCR Not Detected (Not Detect.); Influenza A PCR Not Detected (Not Detect.); Influenza B PCR Not Detected (Not Detect.); Mycoplasma pneumoniae PCR Not Detected (Not Detect.); Parainfluenza 1 PCR Not Detected (Not Detect.); Parainfluenza 2 PCR Not Detected (Not Detect.); Parainfluenza 3 PCR Not Detected (Not Detect.); Parainfluenza 4 PCR Not Detected (Not Detect.); RSV PCR Not Detected (Not Detect.); Rhino/Enterovirus PCR Not Detected (Not Detect.)
[2024-03-19 13:33] LABS: SARS-CoV-2 PCR Not Detected (Not Detect.)
[2024-03-19 13:58] VITALS: BP 96/62; PULSE 63; RESP 16; TEMP 36.9; O2SAT 95
== END 2024-03-19 14:05 | disposition home or self-care (01) ==
PROVIDERS: Physician Assistant Medical; Emergency Provider Emergency Medicine; PCP Family Medicine
DX: L50.0 Allergic urticaria (principal); M79.10 Myalgia, unspecified site; R05.9 Cough, unspecified; J02.9 Acute pharyngitis, unspecified; R06.2 Wheezing; R09.81 Nasal congestion; D84.9 Immunodeficiency, unspecified; Z79.899 Other long term (current) drug therapy; Z11.52 Encounter for screening for COVID-19
CPT/HCPCS: 71046; 87633; 87651; 99283; 99284

== ENCOUNTER 2024-04-02 14:53 | Outpatient (AMB) | payer BC, SELFPAY ==
[2024-04-02 15:09] VITALS: BP 110/72; PULSE 65; O2SAT 97; BMI 37.6
--- NOTE | 2024-04-02 15:09 | MHC.PC.OV ---
Vital Signs 04/02/24 15:09 Height 5 ft 4 in Weight 219 lb 4 oz BMI 37.6 Blood Pressure Location Lt brachial Position Sitting Pulse Source Pulse Oximeter Oxygen Delivery Method Room Air Intake Visit Reasons: pe/julio cesar Joi Allergies Sulfa (Sulfonamide Antibiotics) Allergy (Severe, Verified 03/25/24 16:38) Anaphylaxis Tobacco use date assessed: 03/05/24 Dental Screening Dental Screen Date: 03/05/24 [facility] Surgical History Tubal ligation status Family History Mother Diabetes mellitus Social History Housing: House Patient Tobacco Use Status: Never used Tobacco e-Cigarette/Vaping Use: Never Used service: No Current occupational status: employed Current occupation: [employer] Current occupational exposures/hazards: Yes Cognitive needs: No Hearing needs: No Vision needs: Yes Questionnaire Thrive Questionnaire Date Thrive assessed: 03/05/24 I am a: Patient What is your living situation today?: I have a steady place to live Within the past 12 months, did the food you bought not last and you didn't have the money to get more?: Never true Within the past 12 months, did you worry whether your food would run out before you got money to buy more?: Never true Do you have trouble paying for medicines?: No Do you have trouble getting transportation to medical appointments?: No Do you have trouble paying your heating and electricity bill?: No Do you have trouble taking care of your child, family member or friend?: No Do you have trouble with day-to-day activities such as bathing, preparing meals, shopping, managing finances, etc.?: No Are you currently unemployed and looking for a job?: No Are you interested in more education?: No Please select the resources that you would like help with: None Currently or been in a relationship where the following occur: No concerns reported THRIVE Score: 0 ERIC-7 AMB Questionnaire ERIC-7 Date ERIC - 7 assessed: 03/05/24 Source: Developed by Drs. Irving Baird, Gladys Michaels, Edmund Ryan and colleagues, with an educational julio césar from [employer]. Physical exam (Primary Care) Tobacco/Smoking Status: Tobacco use Status Tobacco use date assessed 03/05/24 03/05/24 15:08 Patient Tobacco Use Status Never used Tobacco 03/19/24 09:30 e-Cigarette/Vaping Use Never Used 03/05/24 15:08 Thrive Assessment: Date of Thrive Assessment Date Thrive assessed 03/05/24 04/02/24 14:54 Currently or been in a relationship where the following occur: No concerns reported Coding
--- NOTE | 2024-04-02 15:13 | A.OFFPC_ITS ---
Vital Signs 04/02/24 15:09 Height 5 ft 4 in Weight 219 lb 4 oz BMI 37.6 BP 110/72 Blood Pressure Location Lt brachial Position Sitting Pulse 65 Pulse Source Pulse Oximeter Pulse Oximetry (%) 97 Oxygen Delivery Method Room Air Intake Visit Reasons: pe/julio cesar Joi Intake Note: Pt is here for [facility] ED follow up and Transfer of care from Dr. Tamez. Reconciliation Specialist Required: No Accompanied by: Self / Same As Patient Allergies Sulfa (Sulfonamide Antibiotics) Allergy (Severe, Verified 04/02/24 15:56) Anaphylaxis Medication List - Last Reconciled 04/02/24 by Gabriel Chawla PA-C benzonatate 200 mg PO TID PRN 5 days levothyroxine 125 mcg PO DAILY 90 days prednisone 40 mg (2 x 20 mg) PO DAILY 4 days Tobacco use date assessed: 03/05/24 Dental Screening Dental Screen Date: 03/05/24 HPI pe/julio cesar Tamez HPI Details Patient is a 58-year-old female here today for a transfer of care visit. Patient has a past medical history significant for acquired hypothyroidism. She has been stable on her current dose of levothyroxine at 125 mcg. Concern--> recently had an allergic reaction to sulfa drug that caused a widespread body rash. Previous to her reaction she felt like she had flu-like symptoms and developed a upper respiratory type cough. She reports getting upper respiratory bronchial type coughs every winter during the cold seasons. She does admit to having a large amount of secondhand smoke during her early years. She often needs medication during these bronchial/bronchitis episodes. Obesity: Patient does understand her BMI is over 35. She does report trying to reduce her portions though has not been effective. She since since she has had her children she has not been able to really lose weight. She has tried phentermine in the past in lost 20-25 lb. She is willing to try phentermine again for short term to kick start weight loss. [facility] Surgical History Tubal ligation status Family History Mother Diabetes mellitus Social History Housing: House Patient Tobacco Use Status: Never used Tobacco e-Cigarette/Vaping Use: Never Used service: No Current occupational status: employed Current occupation: [employer] Current occupational exposures/hazards: Yes Cognitive needs: No Hearing needs: No Vision needs: Yes Questionnaire Thrive Questionnaire Date Thrive assessed: 03/05/24 I am a: Patient What is your living situation today?: I have a steady place to live Within the past 12 months, did the food you bought not last and you didn't have the money to get more?: Never true Within the past 12 months, did you worry whether your food would run out before you got money to buy more?: Never true Do you have trouble paying for medicines?: No Do you have trouble getting transportation to medical appointments?: No Do you have trouble paying your heating and electricity bill?: No Do you have trouble taking care of your child, family member or friend?: No Do you have trouble with day-to-day activities such as bathing, preparing meals, shopping, managing finances, etc.?: No Are you currently unemployed and looking for a job?: No Are you interested in more education?: No Please select the resources that you would like help with: None Currently or been in a relationship where the following occur: No concerns reported THRIVE Score: 0 ERIC-7 AMB Questionnaire ERIC-7 Date ERIC - 7 assessed: 03/05/24 Source: Developed by Drs. Irving Baird, Gladys Michaels, Edmund Ryan and colleagues, with an educational julio césar from [employer]. Review of Systems Const Denies headache(s) Eyes Denies loss of vision ENT Denies vertigo, Denies dizziness, Denies headache(s) and Denies sore throat Card Denies chest pain, Denies leg edema, Denies lightheadedness and Denies dyspnea Resp Reports cough, Denies hemoptysis, Denies dyspnea and Denies wheezing GI Denies abdominal pain, Denies melena, Denies constipation, Denies diarrhea and Denies vomiting Denies urinary frequency, Denies dysuria and Denies urinary urgency Musc Denies arthralgias, Denies joint swelling, Denies numbness and Denies tingling Neuro Denies Abnormal speech present, Denies behavioral changes, Denies vertigo, Denies dizziness, Denies headache(s), Denies loss of vision, Denies memory loss, Denies numbness and Denies tingling Psych Denies anxiety, Denies behavioral changes, Denies depression, Denies memory loss and Denies panic attacks Gilberto/Lymph Denies easy bleeding and Denies easy bruising Aller/Immun Denies wheezing Physical exam (Primary Care) Vital Signs: Last Vital Signs Pulse 65 04/02/24 15:09 BP 110/72 04/02/24 15:09 Pulse Ox 97 04/02/24 15:09 Oxygen Delivery Method Room Air 04/02/24 15:09 BMI result Body Mass Index 37.6 BMI Assessment/Plan discussion: High BMI High, discussed plan: lifestyle, weight reduction, dietary and physical activity Tobacco/Smoking Status: Tobacco use Status Tobacco use date assessed 03/05/24 04/02/24 15:17 Patient Tobacco Use Status Never used Tobacco 04/02/24 15:17 e-Cigarette/Vaping Use Never Used 04/02/24 15:17 Thrive Assessment: Date of Thrive Assessment Date Thrive assessed 03/05/24 04/02/24 15:17 Currently or been in a relationship where the following occur: No concerns reported Const General: healthy appearing, no acute distress, alert and awake Nutritional Appearance: well nourished Orientation/consciousness: oriented to person, oriented to place and oriented to time HENMT Ears: TM's normal bilaterally General nose exam: Normal nasal mucous membranes and turbinates present Eyes Conjunctivae: conjunctivae normal Sclerae: sclerae normal Pupils: Equal, round and reactive pupils present Neck Neck: Yes no lymphadenopathy and Yes no JVD Thyroid: Thyroid normal Carotids: no bruits Resp Effort & Inspection: normal respiratory effort and not tachypneic Auscultation: no crackles, no rales, no rhonchi and no wheezes Cardio Rate: regular rate Rhythm: regular rhythm Heart sounds: no murmurs and normal S1 and S2 GI Palpation (GI): Soft to palpation, nontender, no hepatomegaly and no splenomegaly Auscultation: normal bowel sounds Skin General skin exam: no rashes or lesions noted and dry skin Neuro General: oriented to person, oriented to place and oriented to time Cranial nerves: Yes Equal, round and reactive pupils present Speech: No Abnormal speech present Gait exam (Neuro): Normal gait present Motor exam (neuro): no tremor noted Extrem Right upper extremity: full ROM Left upper extremity: full ROM Right lower extremity: full ROM; no edema Left lower extremity: full ROM; no edema Psych Mental Status: mental status grossly normal Speech and movement: Normal speech and movement present Affect: normal affect Attitude: cooperative Thought process: Normal thought process present Coding Level of Care Code Est Pt Level 4 (75656) Diagnoses Hypothyroidism (acquired) E03.9 Simple chronic bronchitis J41.0 Chronic bronchitis type: simple Class 2 obesity E66.812 Assessment & Plan Assessment & Plan (1) Hypothyroidism (acquired): Comment: preet Pete, age 29 Radioctive iodine trt. Code(s): E03.9 - Hypothyroidism, unspecified Category: Medical Plan: Patient's history of Graves disease and underwent radioactive iodine treatment in her early 20s. She continues on levothyroxine 125 mcg with good effect. Will continue to follow TSH to assure normal. (2) Chronic bronchitis: Code(s): J42 - Unspecified chronic bronchitis Category: Medical Qualifiers: Chronic bronchitis type: simple Qualified Code(s): J41.0 - Simple chronic bronchitis Plan: Patient's seems to have a chronic bronchitis that worsens in the cold winter months. We did discuss perhaps doing PFTs to evaluate for an obstructive pulmonary disease that could be secondary to secondhand smoke. She is interested in trying a maintenance inhaler to see if her pulmonary symptoms resolve . (3) Class 2 obesity: Code(s): E66.812 - Obesity, class 2 Category: Medical Plan: Patient does understand her BMI is over 35 and would like to restart phentermine to help her kick start weight loss. She reports phentermine has worked for her in the past and she was able to lose about 20 lb. She understands that this medication is not long-term med Orders: Orders Lipid Panel 11 Months Z82.49 - Family history of ischemic heart disease and other diseases of the circulatory system TSH reflex Free T4 11 Months E03.9 - Hypothyroidism, unspecified Vitamin D 25-OH Total 11 Months E03.9 - Hypothyroidism, unspecified Complete Blood Count no Diff 11 Months J41.0 - Simple chronic bronchitis Comprehensive [place]. Panel Fast 11 Months R73.01 - Impaired fasting glucose Hemoglobin A1c 11 Months R73.01 - Impaired fasting glucose Medications: New fluticasone propion-salmeterol 45-21 mcg/actuation (Advair HFA) 2 puffs inhalation BID 30 days 12 grams 1RF J41.0 - Simple chronic bronchitis phentermine must administer 30 minutes before or 1-2 hours after breakfast 37.5 mg PO DAILY 28 days 28 caps 1RF E66.812 - Obesity, class 2 Discontinued prednisone Discontinued Reason: Doctor's Order 40 mg (2 x 20 mg) PO DAILY 4 days 8 tabs 0RF
== END 2024-04-02 16:23 | disposition home or self-care (01) ==
PROVIDERS: PCP Physician Assistant; Visit Provider Physician Assistant
DX: E03.9 Hypothyroidism, unspecified (principal); J41.0 Simple chronic bronchitis; E66.812 Obesity, class 2; Z68.37 Body mass index [BMI] 37.0-37.9, adult

== ENCOUNTER → 2024-04-02 14:53 | Outpatient (BNVA) | payer BC, SELFPAY | PROVIDERS: PCP Physician Assistant; Visit Provider Physician Assistant ==

== ENCOUNTER 2025-01-21 12:36 | Outpatient (AMB) | payer BC, SELFPAY ==
[2025-01-21 12:45] VITALS: BP 118/76; PULSE 68; TEMP 36.6; O2SAT 98; BMI 38.6
--- NOTE | 2025-01-21 12:45 | AM.OFFWIN_ITS ---
Intake Vital Signs 01/21/25 12:45 Height 5 ft 4 in Weight 225 lb BMI 38.6 BP 118/76 Blood Pressure Location Lt brachial Position Sitting Pulse 68 Pulse Source Pulse Oximeter Temp 97.9 F Temp Source Oral Pulse Oximetry (%) 98 Oxygen Delivery Method Room Air Intake Visit Reasons: ep possible sinus infection Intake Note: pt presents with sinus pressure with right sided facial pain Patient Tobacco Use Status: Never used Tobacco Allergies Sulfa (Sulfonamide Antibiotics) Allergy (Severe, Verified 01/21/25 12:47) Anaphylaxis Do you need a note to return to daycare/school/sports/work: No HPI HPI Comments History of Present Illness Details History of Present Illness - The patient is a 59-year-old female pr esenting with symptoms suggestive of a sinus infection. - The symptoms began approximately two m onths ago, with pain affecting the right upper jaw and face, and have been persistent despite initial treatment with Claritin D. - The patient reports a history of postn constance drip and increased earwax in one ear, contributing to discomfort. 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 - The patient has not been on antibiotic s for this condition yet and experiences pain exacerbation with head movement and certain sleeping positions. - She has pain when she moves her head a round, bending over makes it worse. - She denies fever, chills, CP, SOB, sor e throat, or cough. Physical Exam General: Cooperative, healthy appearing, comfortable, no acute distress and well developed Head: Normal to inspection Ears: Hearing grossly normal bilaterally. No tragus or mastoid tenderness noted. Auditory canals clear bilaterally. TM's normal, not bulging. No fluid noted. Nose: Normal external nose present. Moist mucosa. Turbinates normal bilaterally, not boggy. Face and sinus: Tenderness to palpation of the frontal and maxillary sinuses bilaterally. Right TMJ click noted. Neck: Normal visual inspection and Yes full ROM. No lymphadenopathy noted. Respiratory: Normal respiratory effort and able to speak in complete sentences. Clear to auscultation bilaterally Cardiovascular: Regular rate and rhythm. Normal S1 and S2 GI: Normal to inspection. Soft to palpation and nontender, nondistended. No guarding noted. Skin: No rashes or lesions noted [facility] Surgical History Tubal ligation status Family History Mother Diabetes mellitus Social History Housing: House Patient Tobacco Use Status: Never used Tobacco e-Cigarette/Vaping Use: Never Used service: No Current occupational status: employed Current occupation: [employer] Current occupational exposures/hazards: Yes Cognitive needs: No Hearing needs: No Vision needs: Yes Review of Systems Const All systems reviewed & are unremarkable except as noted in HPI and below Physical Exam Vital Signs: Last Vital Signs Temp 97.9 F 01/21/25 12:45 Pulse 68 01/21/25 12:45 BP 118/76 01/21/25 12:45 Pulse Ox 98 01/21/25 12:45 Oxygen Delivery Method Room Air 01/21/25 12:45 BMI result Body Mass Index 38.6 Assessment & Plan Assessment & Plan (1) Sinus pain: Code(s): J34.89 - Other specified disorders of nose and nasal sinuses Plan Most likely sinusitis vs TMJ plan - steam showers daily -tylenol or motrin as needed - flonase and claritin D daily - Augmetin BID for 10 days - may need an ENT appt if no better - follow up with PCP Medications: New amoxicillin-pot clavulanate 875-125 mg 1 tab PO Q12H 14 tabs 0RF Coding Level of Care Code Est Pt Level 3 (69986) Diagnoses Sinus pain J34.89
--- OUTSIDE RECORDS SUMMARY | 2025-01-21 13:50 | XMS_ITS | Continuity of Care Document ---
Author Organization [facility] [address] [place] [address] Phone [phone] Social History Type Date Description Comments Sex Female Sex Unknown Medical Devices Description No Information Available Encounters Description No Information Available Assessments Description No Information Available Plan of Treatment No Information Available Functional Status Description No Information Available Mental Status Description No Information Available Referrals Description No Information Available
== END 2025-01-21 13:22 | disposition home or self-care (01) ==
PROVIDERS: PCP Physician Assistant; Visit Provider Physician Assistant Medical
DX: J34.89 Other specified disorders of nose and nasal sinuses (principal)

== ENCOUNTER 2025-04-09 13:16 | Outpatient (AMB) | payer BC, SELFPAY ==
[2025-04-09 13:25] VITALS: BP 104/62; PULSE 53; TEMP 36.3; O2SAT 97; BMI 37.9
--- NOTE | 2025-04-09 13:25 | A.OFFPC_ITS ---
Vital Signs 04/09/25 13:25 Height 5 ft 4 in Weight 221 lb BMI 37.9 BP 104/62 Blood Pressure Location Lt brachial Position Sitting Pulse 53 Pulse Source Pulse Oximeter Temp 97.3 F Temp Source Temporal Artery Scan Pulse Oximetry (%) 97 Oxygen Delivery Method Room Air Intake Visit Reasons: PE Allergies Sulfa (Sulfonamide Antibiotics) Allergy (Severe, Verified 04/09/25 13:47) Anaphylaxis Medication List - Last Reconciled 04/09/25 by Gabriel Chawla PA-C eabonei-kkfrojxagbuzo-moenkket 250-250-65 mg (Excedrin Migraine) 1 tab PO Q4-6H PRN fluticasone propion-salmeterol 45-21 mcg/actuation (Advair HFA) 2 puffs inhalation BID PRN ibuprofen (Advil) 200 mg PO Q6H PRN levothyroxine 125 mcg PO DAILY 90 days loratadine-pseudoephedrine 5-120 mg ER (Claritin-D 12 Hour) 1 tab PO Q12H PRN Tobacco use date assessed: 03/05/24 Dental Screening Dental Screen Date: 03/05/24 HPI PE HPI Details Patient is a 59-year-old female here today for a PE Patient has a past medical history significant for acquired hypothyroidism, Obesity, Class 2 Obesity: Patient does understand her BMI is over 35. She does report trying to reduce her portions though has not been effective. She since since she has had her children she has not been able to really lose weight. She expresses a lack of willingness to put effort into weight reduction as she has mentally overloaded . She has tried phentermine in the past in lost 20-25 lb. She is willing to try phentermine again for short term to kick start weight loss. .. Hypothyroidism: Has been stable on current dose of levothyroxine for quite some time. Has had trouble losing weight though this has been a chronic issue for her. Colonoscopy: Willing to do Cologuard Mammo : goes to [facility] for Mammo though does not get mammograms every year rather every 3-4 years. CREDIT INTERN: does see a CREDIT INTERN at [facility] every 3 or 4 years Vaccine: UTD with COVID, UTD with Tdap, declines flu vaccine and is considering shingles vaccine [facility] Surgical History Tubal ligation status Family History (Updated 04/09/25 @ 13:55 by Gabriel Chawla PA-C) Mother Diabetes mellitus Social History (Updated 04/09/25 @ 13:55 by Gabriel Chawla PA-C) Housing: House Alcohol intake: current Alcohol intake frequency: a few times a month Alcohol type: wine Patient Tobacco Use Status: Never used Tobacco e-Cigarette/Vaping Use: Never Used service: No Current occupational status: employed Current occupation: [employer] Current occupational exposures/hazards: Yes Cognitive needs: No Hearing needs: No Vision needs: Yes Questionnaire PHQ-9 Over the last 2 weeks, how often have you been bothered by any of the following problems? 1. Little interest or pleasure in doing things: not at all 2. Feeling down, depressed, or hopeless: not at all 3. Trouble falling or staying asleep, or sleeping too much: several days 4. Feeling tired or having little energy: several days 5. Poor appetite or overeating: more than half the days 6. Feeling bad about yourself - or that you are a failure or have let yourself or your family down: not at all 7. Trouble concentrating on things, such as reading the newspaper or watching television: not at all 8. Moving or speaking so slowly that other people could have noticed. Or the opposite - being so fidgety or restless that you have been moving around a lot more than usual: not at all 9. Thoughts that you would be better off or of hurting yourself in some way: not at all Total score: 4 Depression Screening Interpretation: Positive Depression Screening Done: Yes 49964 - PHQ-9 Billing: Yes Source: Developed by Drs. Irving Baird, Gladys Michaels, Edmund Ryan and colleagues, with an educational julio césar from [employer]. Thrive Questionnaire Date Thrive assessed: 04/09/25 I am a: Patient What is your living situation today?: I have a steady place to live Within the past 12 months, did the food you bought not last and you didn't have the money to get more?: Never true Within the past 12 months, did you worry whether your food would run out before you got money to buy more?: Never true Do you have trouble paying for medicines?: No Do you have trouble getting transportation to medical appointments?: No Do you have trouble paying your heating and electricity bill?: No Do you have trouble taking care of your child, family member or friend?: No Do you have trouble with day-to-day activities such as bathing, preparing meals, shopping, managing finances, etc.?: No Are you currently unemployed and looking for a job?: No Are you interested in more education?: No Please select the resources that you would like help with: None Currently or been in a relationship where the following occur: I choose not to answer THRIVE Score: 0 AUDIT C Alcohol Use Questionnaire (AUDIT-C) 1. How often do you have a drink containing alcohol?: Monthly or less 2. How many drinks containing alcohol do you have on a typical day when you are drinking?: 1 or 2 3. How often do you have six or more drinks on one occasion?: Never Total Score: 1 Score Reviewed/Action Taken: Yes ERIC-7 AMB Questionnaire ERIC-7 Date ERIC - 7 assessed: 04/09/25 Feeling nervous, anxious, or on edge: 0 = Not at all Not being able to stop or control worryin = Not at all Worrying too much about different things: 0 = Not at all Trouble relaxin = Not at all Being so restless that it is hard to sit still: 0 = Not at all Becoming easily annoyed or irritable: 0 = Not at all Feeling afraid as if something awful might happen: 0 = Not at all Total ERIC-7 score (0-4 normal; 5-9 mild; 10-14 moderate; 15-21 severe): 0 Source: Developed by Drs. Irving Baird, Gladys Michaels, Edmund Ryan and colleagues, with an educational julio césar from [employer]. ERIC-7 Assessment Billing ERIC-7 Assessment Tool: ERIC-7 Assessment 10775 Review of Systems Const Denies body aches, Denies chills, Denies excessive sweating, Denies fatigue, Denies fever(s) and Denies headache(s) Eyes Denies blurry vision ENT Denies dysphagia, Denies vertigo, Denies dizziness, Denies headache(s), Denies hearing loss and Denies tinnitus Card Denies chest pain, Denies chest pain with activity, Denies syncope, Denies irregular heart rhythm and Denies dyspnea Resp Denies chest congestion, Denies cough, Denies hemoptysis, Denies dyspnea and Denies wheezing GI Denies abdominal pain, Denies melena, Denies hematochezia, Denies coffee ground emesis, Denies dysphagia, Denies diarrhea, Denies nausea and Denies vomiting Denies urinary frequency, Denies dysuria, Denies urinary hesitancy and Denies urinary urgency Musc Denies arthralgias, Denies limited range of motion, Denies muscle cramps and Denies muscle weakness Skin/Breast Denies rash and Denies skin ulcer Neuro Denies Abnormal speech present, Denies confusion, Denies vertigo, Denies dizziness, Denies syncope, Denies headache(s), Denies memory loss and Denies seizure-like activity Psych Denies anxiety, Denies confusion, Denies depression, Denies memory loss, Denies panic attacks and Denies paranoia Endo Denies excessive sweating, Denies fatigue, Denies flushing, Denies polydipsia and Denies polyuria Aller/Immun Denies wheezing Physical exam (Primary Care) Vital Signs: Last Vital Signs Temp 97.3 F 04/09/25 13:25 Pulse 53 04/09/25 13:25 BP 104/62 04/09/25 13:25 Pulse Ox 97 04/09/25 13:25 Oxygen Delivery Method Room Air 04/09/25 13:25 BMI result Body Mass Index 37.9 BMI Assessment/Plan discussion: High BMI High, discussed plan: lifestyle, weight reduction, dietary and physical activity Tobacco/Smoking Status: Tobacco use Status Tobacco use date assessed 03/05/24 04/09/25 13:35 Patient Tobacco Use Status Never used Tobacco 04/09/25 13:35 e-Cigarette/Vaping Use Never Used 04/09/25 13:35 PHQ-9: PHQ-9 Score PHQ-9: Total score 4 04/09/25 13:38 Depression Screening Interpretation: Positive Thrive Assessment: Date of Thrive Assessment Date Thrive assessed 04/09/25 04/09/25 13:35 Currently or been in a relationship where the following occur: I choose not to answer Const General: cooperative, comfortable, no acute distress, alert and awake; No confusion Orientation/consciousness: oriented to person, oriented to place, patient oriented x3 and No confusion HENDE Head: Yes normocephalic Ears: external ears normal and TM's normal bilaterally Face and sinus: No sinus tenderness Mouth: Normal oral and palatal mucosa present and tongue normal Teeth and gingiva: dentition normal and gingiva normal Throat: Yes posterior oropharynx normal, Yes tonsils normal and Yes uvula midline Eyes Conjunctivae: conjunctivae normal Sclerae: sclerae normal Pupils: Equal, round and reactive pupils present EOM: EOMs intact bilaterally Direct Ophthalmoscopy: No no photophobia Neck Neck: Yes no lymphadenopathy, No tender and Yes no JVD Thyroid: Thyroid normal Carotids: no bruits Chest Chest palpation & inspection: no tenderness Resp Effort & Inspection: normal respiratory effort, no audible wheezes, not labored and no stridor Auscultation: no crackles, no rales, no rhonchi and no wheezes Cardio Jugular venous distension: no JVD Rate: regular rate, not bradycardic and not tachycardic Rhythm: regular rhythm Bruits: no carotid bruits Peripheral pulses: Peripheral pulses 2+ throughout GI Inspection: Yes normal to inspection, No abdominal wall ecchymosis and No visible herniation Palpation (GI): Soft to palpation, nontender, no guarding, not rigid and No hepatosplenomegaly present Auscultation: normoactive bowel sounds General: Yes no CVA tenderness Back/Spine/Pelvis Back: no CVA tenderness and No back tenderness Cervical Spine: cervical ROM normal Thoracic/Lumbar Spine: thoracic and lumbar spine normal to inspection, straight leg raise negative bilaterally, No thoraco-lumbar ROM limited and No lumbar spinal tenderness Skin Lesions: no lesions Rashes: no rashes Wounds: no wounds Neuro General: oriented to person, oriented to place, patient oriented x3, CN's II-XI intact bilaterally and No confusion Cranial nerves: Yes Equal, round and reactive pupils present and Yes Normal accommodation reflex present Cognition (Neuro): normal cognition Speech: No Abnormal speech present Gait exam (Neuro): Normal gait present Motor exam (neuro): 5/5 motor strength present throughout Extrem Right upper extremity: full ROM; no cyanosis Left upper extremity: full ROM; no cyanosis Right lower extremity: no edema Left lower extremity: no edema Psych Appearance: grossly normal Mental Status: mental status grossly normal Affect: normal affect Attitude: cooperative Thought process: Normal thought process present Coding Level of Care Code Est Pt Prev Care 40-64y(52198) Diagnoses Annual physical exam Z00.00 Epidermoid cyst of finger L72.0 Class 2 obesity E66.812 Hypothyroidism (acquired) E03.9 Screening for diabetes mellitus (DM) Z13.1 Additional Codes ERIC-7 Assessment Billing - ERIC-7 Assessment Tool: ERIC-7 Assessment 98010 ([id number]) PHQ-9 - 56451 - PHQ-9 Billing: Yes ([id number]) Assessment & Plan Assessment & Plan (1) Annual physical exam: Code(s): Z00.00 - Encounter for general adult medical examination without abnormal findings Category: Medical Plan: As per HPI (2) Epidermoid cyst of finger: Code(s): L72.0 - Epidermal cyst Category: Medical Plan: Has had a cuticle cyst over the past year she continues to reopen at times and purulent material is removed. Often gets tender and swollen. She would like to see a hand surgeon for definitive treatment (3) Class 2 obesity: Code(s): E66.812 - Obesity, class 2 Category: Medical Plan: Patient does understand her BMI is over 35 and willing to tried phentermine again to kick start weight loss. She will try to implement the high-protein low-carbohydrate diet and try to be more physically active to lose weight. She is open to the idea of talking to a weight forest fire management officer about weight reduction as well. (4) Hypothyroidism (acquired): Comment: preet Pete, age 29 Radioctive iodine trt. Code(s): E03.9 - Hypothyroidism, unspecified Category: Medical Plan: Patient has been stable on current dose of levothyroxine 125 mcg. Will continue to follow TSH. (5) Screening for diabetes mellitus (DM): Code(s): Z13.1 - Encounter for screening for diabetes mellitus Category: Medical Plan: As per HPI Orders: Orders Vitamin D 25-OH Total Today E55.9 - Vitamin D deficiency, unspecified Hemoglobin A1c Today R73.03 - Prediabetes Comprehensive [facility]. Panel Fast Today Z13.1 - Encounter for screening for diabetes mellitus Referrals Orthopedics Referral L72.0 - Epidermal cyst Medical Weight Management Referral E66.812 - Obesity, class 2 Medications: New phentermine must administer 30 minutes before or 1-2 hours after breakfast 37.5 mg PO DAILY 28 caps 0RF 28 days E03.9 - Hypothyroidism, unspecified Changed From fluticasone propion-salmeterol 45-21 mcg/actuation (Advair HFA) 2 puffs inhalation BID 30 days 12 grams 1RF J41.0 - Simple chronic bronchitis To fluticasone propion-salmeterol 45-21 mcg/actuation (Advair HFA) 2 puffs inhalation BID PRN J41.0 - Simple chronic bronchitis Refilled levothyroxine 125 mcg PO DAILY 90 tabs 3RF 90 days E03.9 - Hypothyroidism, unspecified
--- OUTSIDE RECORDS SUMMARY | 2025-04-10 01:10 | XMS_ITS | Patient Health Record ---
Author Organization [facility] Address [address] [place] [address] Care Team Providers Care Computer Systems Design Analyst Name Role Phone Matt Pardo MD Primary Care Provider Roopa Muñiz Unavailable [phone] Reason For Referral No Information Medications Medication SIG (Take, Route, Fr equency, Duration) Notes Start Date End Date Status Levothyroxine Sodium Active Problems No Known Problems Plan Of Treatment No Information Insurance Providers Payer Name Payer Address Payer Phone Subscriber Number Group Number Insured Name Patient Relationship to Insured Coverage Start Date Coverage End Date [facility] [address] [place] [address] [id number] Karlee Colbert Self - patient is the insured Medical (General) History Medical History History ICD Code Back,Hip,and Knee pain Thyroid disorder Chicken pox
--- OUTSIDE RECORDS SUMMARY | 2025-04-10 01:10 | XMS_ITS ---
Continuity of Care Document (CCD) Created on: April 10, 2025 KerriolivierKarlee External Reference #: [id number] : [id number] Sex: Female Author Organization [facility] [address] [place] [address] Phone [phone] Social History Type Date Description Comments Sex Female Sex Unknown Medical Devices Description No Information Available Encounters Description No Information Available Assessments Description No Information Available Plan of Treatment No Information Available Functional Status Description No Information Available Mental Status Description No Information Available Referrals Description No Information Available
== END 2025-04-09 14:50 | disposition home or self-care (01) ==
LOC: HO.HMCH 13:17
PROVIDERS: PCP Physician Assistant; Visit Provider Physician Assistant
DX: Z00.00 Encounter for general adult medical examination without abnormal findings (principal); L72.0 Epidermal cyst; E66.812 Obesity, class 2; E03.9 Hypothyroidism, unspecified; Z13.1 Encounter for screening for diabetes mellitus; Z68.37 Body mass index [BMI] 37.0-37.9, adult

== ENCOUNTER → 2025-04-09 13:16 | Outpatient (BNVA) | payer BC, SELFPAY | PROVIDERS: PCP Physician Assistant; Visit Provider Physician Assistant | DX: Z00.00 Encounter for general adult medical examination without abnormal findings (principal); Z13.1 Encounter for screening for diabetes mellitus; L72.0 Epidermal cyst; E66.812 Obesity, class 2; E03.9 Hypothyroidism, unspecified; Z68.37 Body mass index [BMI] 37.0-37.9, adult | CPT/HCPCS: 96127 ==

== ENCOUNTER 2025-04-14 14:36 | Outpatient (REF) | payer BC, SELFPAY ==
[2025-04-14 16:10] LABS: Hematocrit 42.4 % (37.0-47.0); Hemoglobin 14.0 g/dl (12.0-16.0); Mean Corpuscular HGB Conc 33.0 g/dl (31.0-35.0); Mean Corpuscular Hemoglobin 29.9 pg (27.0-33.0); Mean Corpuscular Volume 90.6 fL (80.0-98.0); NRBC Abs Auto 0.000 X10*3/uL (0.0-0.012); NRBC Pct Auto 0.0 /100WBC (0.0-0.2); Platelet Count 249 X10*3/uL (160-400); Red Blood Count 4.68 X10*6/uL (4.20-5.50); White Blood Count 4.0 X10*3/uL (4.8-10.8)
[2025-04-14 17:13] LABS: Anion Gap 11 (12-20)
[2025-04-14 17:18] LABS: Alanine Aminotransferase 23 U/L (0-31); Albumin Level 4.7 g/dL (3.5-5.0); Alkaline Phosphatase 90 U/L (39-117); Aspartate Amino Transferase 24 U/L (5-31); Blood Urea Nitrogen 16 mg/dL (9-16); Calcium 9.2 mg/dL (8.4-10.2); Carbon Dioxide 28 mmol/L (22-29); Chloride 107 mmol/L (96-108); Cholesterol 158 mg/dL (<200); Estimated Glomerular Filt Rate > 60; HDL Cholesterol 54 mg/dL (>40); Potassium 3.9 mmol/L (3.3-5.1); Sodium 142 mmol/L (135-145); Total Protein 7.1 g/dL (6.5-8.0); Triglycerides 96 mg/dL (<150)
--- OUTSIDE RECORDS SUMMARY | 2025-04-14 19:29 | XMS_ITS | Continuity of Care Document ---
Author Organization [facility] [address] [facility] [address] [place] [address] Phone [phone] Social History Type Date Description Comments Sex Female Sex Unknown Medical Devices Description No Information Available Encounters Description No Information Available Assessments Description No Information Available Plan of Treatment No Information Available Functional Status Description No Information Available Mental Status Description No Information Available Referrals Description No Information Available
== END 2025-04-14 14:37 | disposition home or self-care (01) ==
LOC: HO.HMGCLDS 14:36
PROVIDERS: PCP Physician Assistant; Visit Provider Physician Assistant
DX: J41.0 Simple chronic bronchitis (principal); E03.9 Hypothyroidism, unspecified; R73.03 Prediabetes; Z82.49 Family history of ischemic heart disease and other diseases of the circulatory system; Z13.21 Encounter for screening for nutritional disorder
CPT/HCPCS: 36415; 80053; 80061; 82306; 83036; 84443; 85027

== ENCOUNTER 2025-05-05 11:47 | Outpatient (AMB) | payer BC, SELFPAY ==
--- NOTE | 2025-05-05 12:05 | A.OFFVIS_ITS ---
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 She expresses she popped the cyst due to an uncomfortable amount of pressure. She says clear fluid comes out when she does this and when the skin grows back it refills. Denies numbness, tingling, or locking of her left hand digits. Expresses sensitivity over this area with some redness. She has seen her PCP who gave her sulfa medication which made a larger cyst go down but the smaller one is still there. She says she has since learned she is allergic to sulfa medications. 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 She complains of a recurring cyst beneath the nail fold of her left middle finger for the last 2 years. It will get larger and be somewhat painful and then it will drain a clear sticky fluid, heal and then get larger again. [facility] Surgical History Tubal ligation status Family History (Updated 04/09/25 @ 13:55 by Gabriel Chawla PA-C) Mother Diabetes mellitus Social History Housing: House Alcohol intake: current Alcohol intake frequency: a few times a month Alcohol type: wine Patient Tobacco Use Status: Never used Tobacco e-Cigarette/Vaping Use: Never Used service: No Current occupational status: employed Current occupation: [employer] Current occupational exposures/hazards: Yes Cognitive needs: No Hearing needs: No Vision needs: Yes Physical Exam Vital Signs: BMI result Body Mass Index 37.9 Const General: cooperative, healthy appearing and no acute distress Orientation/consciousness: oriented to person and oriented to place HEENT Head: Yes normocephalic and Yes atraumatic Eyes EOM: EOMs intact bilaterally Resp Effort & Inspection: normal respiratory effort and able to speak in complete se ntences Cardio Jugular venous distension: no JVD Skin General skin exam: turgor normal Rashes: no rashes Neuro General: oriented to person and oriented to place Extrem Other: Evaluation of left Upper Extremity: Neuro: Median, ulnar, radial nerves motor and sensory intact. Vascular: Cap refill brisk. ROM: Can bring fingers closed to a fist and back out to full extension. Can oppose thumb to all fingertips Smooth and painless wrist ROM General: No eccymosis. No erythema or evidence of infection. The patient has a healing mucous cyst at the eponychial fold of the left middle finger. The patient reports a drained clear viscous fluid about 1-2 weeks ago. There is no erythema drainage or evidence of infection. It measures about 4 mm in diameter with a healing punctate opening at the eponychial fold. She also has a nail ridge with visible depression from the cyst sitting on the germinal matrix just proximal to the eponychial fold. Psych Appearance: grossly normal Affect: normal affect Attitude: cooperative Assessment & Plan Assessment & Plan (1) Mucous cyst of digit of left hand: Code(s): M67.442 - Ganglion, left hand Category: Medical Plan Assessment and plan: 1. Left middle finger mucous cyst With recurrent episodes of drainage and recurrent over 2 years I educated her about this condition We discussed operative and non operative treatment options and she would like to proceed with surgery. The risks and benefits of operative treatment were discussed with the patient and the patient wishes to proceed with surgery. These risks include, but are not limited to risk of damage to blood vessels, nerves, tendons, infection, recurrence, incomplete relief of preoperative symptoms, persistent pain, possible need for further surgery and the risks associated with regional blocks and anesthesia. The plan is to take the patient to the operating room sometime in the next few weeks for the following procedures: 1. Left middle finger mucous cyst excision 2. [ ] All of the preoperative paperwork including the consent was filled out today. All the patient's questions were answered. She denies having diabetes or being on blood thinners. I did discuss with her the fact that we will need to try to catch this cyst for surgery sometime after at least 2 weeks after a rupture. If the cyst is not visible or if there is a recent rupture with an open wound then we will likely cancel her. She knows that if she has a recent rupture in his about to have surgery that she can call our spares scheduler and move it out a few weeks. Coding Level of Care Code New Pt Level 4 (67056) Diagnoses Mucous cyst of digit of left hand M67.442
[2025-05-05 12:10] VITALS: BMI 37.9
== END 2025-05-05 13:21 | disposition home or self-care (01) ==
LOC: HO.HOS 11:48
PROVIDERS: PCP Physician Assistant; Visit Provider Orthopaedic Surgery
DX: M67.442 Ganglion, left hand (principal)
CPT/HCPCS: 99204